=== PATIENT | female | born 1975 | race Caucasian/White ===

== ENCOUNTER → 2016-07-09 | Outpatient (CLI) | payer BC ==
[~2016-07-09] MED LIST: CITA40TA12 PO; DSY/150 PO; ESZO1TAB20 PO; HYDR-5688 PO; METF500T5 PO; NORE5TAB5 PO; RIZA10TA18 PO; SUMA50TA15 PO
== END | disposition home or self-care (01) ==
LOC: C.PAPS 16:33
PROVIDERS: ATTEND Obstetrics & Gynecology
DX: Z01.419 Encounter for gynecological examination (general) (routine) without abnormal findings (principal)

== ENCOUNTER → 2016-07-15 | Outpatient (CLI) | payer BC ==
[2016-07-15 11:41] LABS: BASO % 0.3 %; BASO ABS # 0.02 K/uL (0-0.2); COMPLETE YES; EOS % 1.6 %; HEMATOCRIT 43.1 % (37-47); IG% 0.3 %; LYMPH % 38.4 %; LYMPH ABS # 2.59 K/uL (1.2-3.4); MEAN CELL VOLUME 91.1 fL (80-100); MEAN CORPUSCULAR HEMOGLOBIN 31.3 pg (25-34); MEAN CORPUSCULAR HGB CONC 34.3 g/dl (32-36); MEAN PLATELET VOLUME 9.8 fL (7.4-10.4); MONO % 3.1 %; NEUT % 56.3 %; PLATELET COUNT 314 K/uL (130-400); RED BLOOD COUNT 4.73 M/uL (4.2-5.4); WHITE BLOOD COUNT 6.75 K/uL (4.8-10.8)
[2016-07-15 11:43] LABS: PREG INTERNAL NEGATIVE QC NEG CLEAR BACKGROUND; PREG INTERNAL POSITIVE QC POS CONTROL LINE
== END | disposition home or self-care (01) ==
LOC: C.LAB 09:53
PROVIDERS: ATTEND Obstetrics & Gynecology
DX: N92.0 Excessive and frequent menstruation with regular cycle (principal); Z30.2 Encounter for sterilization; Z01.812 Encounter for preprocedural laboratory examination

== ENCOUNTER → 2016-07-18 | Day surgery (SDC) | payer BC ==
[2016-07-01 11:17] VITALS: Ht 166.4 cm; Wt 82.3 kg
--- NOTE | 2016-07-09 11:33 | HISTORY & PHYSICAL EXAMINATION ---
DATE OF ADMISSION: 07/18/2016 CHIEF COMPLAINT: Heavy vaginal bleeding and clotting. HISTORY OF PRESENT ILLNESS: The patient is a 41-year-old 2, para 2. Her last delivery was a for placenta previa at which time she had an amniotic fluid embolus for which she had to be hospitalized and from which she made a full recovery. That occurred in 2012. She presently has several years of heavy vaginal bleeding and clotting. Her periods lasting 7-10 days with clotting, soaking over a pad an hour. She had a Mirena IUD; however, she is unable to retain the IUDs. The last IUD that was inserted fell out before she came back for her 6 week checkup and following this she had a complete CT scan of the abdomen and there was no IUD in the abdominal cavity. She is presently being scheduled for a D\T\C, hysteroscopy, endometrial ablation and bilateral tubal ligation. The ablation is due to her heavy bleeding and her inability to function several days each month due to the heavy bleeding and tubal is for control, for which she is at high risk for getting again secondary to amniotic fluid embolus. SOCIAL HISTORY: She is about a 2 cigarette a day smoker. No excessive alcohol intake. Works at home. PAST MEDICAL HISTORY: She has had a . Medical history: She survived an amniotic fluid embolus with her last in 2012. ALLERGIES: STATES SHE IS ALLERGIC TO PENICILLIN AND HYDROCODONE FROM WHICH SHE GETS A RASH. FAMILY HISTORY: Mom at age 56, oat cell carcinoma of the lung. She was a heavy smoker, starting at age 13. Father 74, has prostate cancer. She has 3 brothers and 3 sisters in good health. REVIEW OF SYSTEMS: She does have problems with anxiety and depression. MEDICATIONS: She is on medications Celexa 80 mg a day. She is also on metformin 1000 mg a day and she takes Ativan p.r.n. for anxiety and Ambien to sleep at night. PHYSICAL EXAMINATION: GENERAL: Well-developed, well-nourished 41-year-old white female, alert, oriented x3 and cooperative in no acute distress, appears stated age. EYES: Conjunctivae are pink, sclerae white, no evidence of jaundice. EARS: Had normal light reflex bilaterally. NECK: Supple. Trachea midline. Thyroid is not enlarged. CHEST: Clear to auscultation and percussion. HEART: Regular rhythm. S1, S2 were normal. ABDOMEN: Normal, there was a well-healed Pfannenstiel scar. PELVIC EXAMINATION: Revealed the normal appearing cervix. Uterus was normal size. There were no adnexal masses or abdominal pelvic tenderness. MUSCULOSKELETAL EXAMINATION: Revealed no calf tenderness. IMPRESSIONS OF THIS CASE: Hypermenorrhea, severe dysmenorrhea, history of amniotic fluid embolus, history of previous , desire for permanent sterilization. MTDD
[~2016-07-18] VITALS: Ht 166.4 cm; Wt 82.3 kg
[~2016-07-18] MED LIST changes: +ATROPINE SULFATE 0.1 MG/ML 5ML SYR IV PRN; +BUPIVACAINE/EPINEPHRINE 0.5% MPF 1:200,000 30 ML VIAL ONE; +DEXAMETHASONE SOD INJ 4 MG/ML VIAL ONE; +DiphenhydrAMINE HCL 50 MG/ML VIAL IV SCH; +DiphenhydrAMINE HCL 50 MG/ML VIAL ONE; +EpHEDrine SULFATE INJ 50 MG/ML AMP IV PRN; +FENTANYL CITRATE INJ 50 MCG/1 ML 2 ML VIAL ONE; +FLUMAZENIL 0.1 MG/1 ML 10 ML VIAL IV PRN; +HYDROmorphone HCL 2 MG TAB PO PRN; +HYDROmorphone INJ 1 MG/ML SYR ONE; +HYDROmorphone INJ 2 MG/ML SYR/VIAL IV PRN; +KETOROLAC TROMETHAMINE 30 MG/ML VIAL IV. PRN; +KETOROLAC TROMETHAMINE 30 MG/ML VIAL ONE; +LABETALOL HCL IV 5 MG/ML 20ML IV PRN; +LACTATED RINGER'S 1000ML 1,000 ML IV SCH; +LIDOCAINE HCL 2% 2 ML VIAL (20MG/ML) ONE; +MEPERIDINE HCL 25 MG/ML CARP IV PRN; +MEPERIDINE HCL 25 MG/ML CARP ONE; +MIDAZOLAM HCL 1 MG/ML 2ML VIAL ONE; +NALOXONE HCL 0.4 MG/1 ML VIAL/CARP IV PRN; +NURSING VERBAL MED ORDER ONE; +ONDANSETRON INJ 2 MG/ML 2 ML VIAL IV PRN; +ONDANSETRON INJ 2 MG/ML 2 ML VIAL ONE; +PHENYLEPHRINE 100MCG/ML 5ML SYR IV PRN; +PROPOFOL IV EMULSION 10 MG/ML 20 ML VIAL IV ONE; +ROCURONIUM BROMIDE 10 MG/ML 5 ML VIAL ONE; +SODIUM CHLORIDE 0.9% 1000ML 1,000 ML IV SCH; +SODIUM CHLORIDE 0.9% INJ 10 ML VIAL ONE
--- NOTE | 2016-07-18 11:43 | History & Physical Bridge Note ---
H&P Re-Evaluation Bridge Note: I have examined the patient, reviewed the History & Physical and in the interval since the performance of the History & Physical I have noted the following changes of clinical significance: No changes noted
--- NOTE | 2016-07-18 13:23 | [facility] Post Operative Brief Note ---
Immediate Operative Summary Operative Date Jul 18, 2016. Pre-Operative Diagnosis Heavy Vaginal Bleeding, Desire for Sterilization Post-Operative Diagnosis same Procedure(s) Performed Laparoscopic Tubal Sterilization, Dilatation And Curettage, Hysteroscopy With Attempted Novasure Ablation Surgeon Dr. Mitchell Gonsales Oven Worker Surgeon(s) 0 Estimated Blood Loss 20cc Findings uterus sounded to 8 cm failed nova sure ablation unable to open the device in uterine cavity endometriosis Specimens A. Endometrial Curettings Complication(s) None Disposition Recovery Room / PACU
--- NOTE | 2016-07-18 13:27 | Discharge Instructions-SurgCtr ---
Discharge Instructions Visit Reason for Visit: Heavy Vaginal Bleeding, Desire For Sterilization Discharge Discharge Diagnosis / Problem: heavy bleeding desire for permanent sterilization Discharge Goals Goal(s): Improve function Medications Stopped Medications Name(s): Metformin, last dose 07/15/16 Restart Stopped Medication(s): resume 07/19/16 Activity Recommendations Activity Limitations: as noted below ACTIVITY RECOMMENDATIONS: * Gradual return to full activity over next 2-3 weeks. * No heavy lifting over next 2-3 weeks. * Nothing in the vagina (no intercourse, tampons, or douching) for 2 weeks * You may walk up and down steps as necessary. * You may drive a car in 2 weeks. * Hot shower or tub bath daily. SPECIAL CARE INSTRUCTIONS: * Check temperature twice daily for one week. Report any elevation over 100.4 degrees Fahrenheit (38.0 degrees Celsius). * Call your doctor if bleeding becomes heavier than the heaviest part of your period - saturating a sanitary pad within an hour. * If you develop a red, hard, warm swollen lump on your incision or if you develop any separation of or drainage from your incision, notify your doctor. Anesthesia . Post Anesthesia Instructions: If you have had General Anesthesia or IV Sedation: * Do not drive today. * Resume driving when surgeon permits. * Do not make important decisions or sign legal documents today. * Call surgeon for: 1. Temperature elevations greater than 101 degrees F. 2. Uncontrollable pain. 3. Excessive bleeding. 4. Persistent nausea and vomiting. 5. Medication intolerance (nausea, vomiting or rash). * For nausea and vomiting use only clear liquids such as: tea, soda, bouillon until nausea subsides, then gradually increase diet as tolerated. * If you have any concerns or questions, call your surgeon's office. If physician is unavailable and it is an emergency, call 911 or go to the nearest emergency room. . Diet Recommendations Home Diet: resume previous diet Procedures Procedures Performed: Laparoscopic Tubal Sterilization, Dilatation And Curettage, Hysteroscopy With Attempted Novasure Ablation Pending Studies Studies pending at discharge: no Medical Emergencies . Who to Call and When: Medical Emergencies: If at any time you feel your situation is an emergency, please call 911 immediately. . Non-Emergent Contact Non-Emergency issues call your: Aircraft Rigging And Controls Mechanic Call Non-Emergent contact if: temperature is above 100.5 . . "Provider Documentation" section prepared by Jericho Gonsales.
[2016-07-18] MEDS: FENTANYL CITRATE INJ 50 MCG/1 ML 2 ML VIAL IV PRN ×2 (14:17→14:25)
--- NOTE | 2016-07-18 15:06 | OPERATIVE REPORT ---
DATE OF OPERATION: 07/18/2016 PROCEDURES: Laparoscopic tubal ligation, D\T\C, hysteroscopy and a failed endometrial ablation. PREOPERATIVE DIAGNOSES: Heavy vaginal bleeding, failed Mirena intrauterine device, desire for permanent sterilization. POSTOPERATIVE DIAGNOSES: Abnormal uterine cavity, unable to adequately open up the NovaSure device in order for it to turn on, minimal amount of endometriosis, normal tubes and ovaries. SURGEON: Dr. Gonsales. ESTIMATED BLOOD LOSS: 20 mL. ANESTHESIA: General. OPERATIVE FINDINGS AND PROCEDURE: The patient was brought to the OR table, correctly identified by armband and conversation. General anesthesia was administered. Perineum, vagina and lower abdomen were painted with Betadine paint, draped in the usual sterile fashion. Catheter was used to empty the bladder. Careful pelvic exam under anesthesia revealed a normal size anteverted uterus. There were no adnexal masses appreciated. Weighted speculum was placed in the posterior vagina. Anterior lip of the cervix grasped with single-tooth tenaculum. Uterus sounded to 8 cm. Cervix was dilated with graduated dilators. A hysteroscope with normal saline distention medium was inserted in the uterine cavity. The cavity appeared to be somewhat irregular and small. I was able to identify the right tubal ostia opening and the left tubal ostial opening. I then proceeded to curette the entire endometrial cavity out with a small sharp serrated curette. All the tissues were submitted for pathological evaluation. Following this, I inserted a NovaSure device with the cervical length estimated at 4.5 cm. I attempted 3 times to open the device up, but I could not get it wide enough for the device to be able to be activated. I replaced it 3 individual times and each time I moved it around right and left and rotated it several times to try to get it to open but could not get it to open wide enough for the needle to go out of the red area. We then abandoned the endometrial ablation procedure, took the NovaSure device out, placed an acorn cannula into the cervix and attached it to the tenaculum. Attention was turned to the lower abdomen. Subumbilical area was infiltrated with local with epinephrine. Stab wound was placed and a Veress needle was inserted into the abdominal cavity. Three liters of carbon dioxide gas was passed under low pressure. Incision was then widened laterally, then a large cannula and trocar was inserted. Trocar was removed. Laparoscope was inserted. Good visualization of pelvic structures was obtained at this time. Bladder flap was visualized, cul-de-sac was visualized. Both tubes and ovaries were freely mobile. Some small endometriosis on the uterosacral ligaments. I then placed a second puncture site through the scar, infiltrated with local, then placed a stab wound and a 5 mm trocar and sleeve. Trocar was removed and a blunt probe was used to manipulate the bowels out of the cavity, I was able take a picture of the appendix. I then put a bipolar cauterization forceps and cauterized the mid portion of each fallopian tube in 2 consecutive and adjacent areas, also followed the tube out to the fimbria to ensure identification, then I placed a laparoscopic scissors in the abdominal cavity and I divided the blanched area of both tubes. Photographs were taken after the tubes had been cauterized and cut. Following this, gas was expressed manually. Instruments were removed. Ports were cleansed with Betadine and sutured with interrupted Vicryl. I attest to the content of the Intraoperative Record and any orders documented therein. Any exceptio ns are noted below.
[2016-07-18 15:40] VITALS: BP 115/74; PULSE 91; TEMP 36.7; O2SAT 94
--- NOTE | 2016-07-18 16:04 | Anesthesia Progress Nt - [facility] ---
Anesthesia Post Op Note Date & Time Jul 18, 2016 at 16:00 Vital Signs Pain Intensity: 4 Vital Signs Past 12 Hours Date Time Temp Pulse Resp B/P Pulse Ox O2 Delivery O2 Flow Rate FiO2 07/18/16 15:40 36.7 91 16 115/74 94 Room Air 07/18/16 15:04 36.6 72 14 07/18/16 15:04 75 14 93 07/18/16 15:03 109/74 07/18/16 14:59 78 23 94 07/18/16 14:59 77 23 07/18/16 14:58 116/73 07/18/16 14:54 78 18 93 07/18/16 14:54 81 18 07/18/16 14:53 121/71 07/18/16 14:49 78 15 95 07/18/16 14:49 75 15 07/18/16 14:48 115/75 07/18/16 14:44 79 15 93 07/18/16 14:44 79 15 07/18/16 14:43 114/76 07/18/16 14:39 86 9 07/18/16 14:39 88 9 97 07/18/16 14:38 120/80 07/18/16 14:34 85 17 07/18/16 14:34 83 17 97 07/18/16 14:33 117/80 07/18/16 14:29 69 15 96 07/18/16 14:29 69 15 07/18/16 14:29 69 15 07/18/16 14:29 69 15 96 07/18/16 14:28 118/81 07/18/16 14:28 118/81 07/18/16 14:24 74 24 99 1617 14:24 74 24 1617 14:24 74 24 07/18/16 14:24 74 24 99 16/17 14:23 125/83 16 14:23 125/83 16 14:19 74 24 1617 14:19 74 24 117/82 99 16/17 14:19 74 24 117/82 99 16/ 14:19 74 24 16 14:14 74 21 16 14:14 73 21 96 16 14:14 73 21 96 2/16/17 14:14 74 21 2/16/17 14:13 135/89 2/16/17 14:13 135/89 2/16/17 14:09 78 14 118/75 100 2/16/17 14:09 77 14 2/16/17 14:09 77 14 2/16/17 14:09 78 14 118/75 100 2/16/17 14:04 91 18 137/97 100 2/16/17 14:04 88 18 2/16/17 14:04 91 18 137/97 100 2/16/17 14:04 88 18 2/16/17 13:59 75 25 100 2/16/17 13:59 74 25 2/16/17 13:59 74 25 2/16/17 13:59 75 25 100 2/16/17 13:58 118/76 2/16/17 13:58 118/76 2/16/17 13:54 77 21 2/16/17 13:54 77 21 2/16/17 13:54 76 21 119/82 94 2/16/17 13:54 76 21 119/82 94 2/16/17 13:49 88 34 122/43 100 2/16/17 13:49 87 34 2/16/17 13:49 87 34 2/16/17 13:49 88 34 122/43 100 2/16/17 13:44 94 21 98 2/16/17 13:44 96 21 2/16/17 13:44 94 21 98 2/16/17 13:44 96 21 2/16/17 13:39 84 28 2/16/17 13:39 85 28 97 2/16/17 13:39 84 28 2/16/17 13:39 85 28 97 2/16/17 13:38 157/129 2/16/17 13:38 157/129 2/16/17 13:34 81 19 94 2/16/17 13:34 81 19 94 2/16/17 13:34 84 19 2/16/17 13:34 84 19 2/16/17 13:29 85 24 99 2/16/17 13:29 85 24 99 2/16/17 13:29 85 24 2/16/17 13:29 85 24 2/16/17 13:28 124/80 2/16/17 13:28 124/80 2/16/17 13:24 93 15 2/16/17 13:24 93 15 07/18/16 13:24 93 15 100 07/18/16 13:24 93 15 100 07/18/16 13:23 135/84 07/18/16 13:23 135/84 07/18/16 13:19 80 23 100 07/18/16 13:19 80 23 07/18/16 13:19 80 23 100 07/18/16 13:19 80 23 07/18/16 13:19 36.3 82 20 129/87 100 Diffusion Mask 6 07/18/16 11:14 36.4 84 20 126/84 97 Room Air Notes Mental Status: alert / awake / arousable, participated in evaluation Pt Amnestic to Procedure: Yes Nausea / Vomiting: adequately controlled Pain: adequately controlled Airway Patency, RR, SpO2: stable & adequate BP & HR: stable & adequate Hydration State: stable & adequate Anesthetic Complications: no major complications apparent The patient was extremely anxious preoperatively due to her PTSD and anxiety from her previous C section. She was given midazolam preoperatively. She tolerated the surgery well and was extubated without incident. She was brought to the PACU with oxygen by FM and all of her vitals were stable. She appeared to have a panic attack upon waking which included hyperventilating and asking if she was in [facility]. She was given Demerol for pain and shivering. Then she was given Benadryl for itching and midazolam for anxiety. The patient was further given fentanyl and Dilaudid for pain. She appeared comfortable and stable upon discharge.
== END | disposition home or self-care (01) ==
LOC: X.SURG 10:56
PROVIDERS: ATTEND Obstetrics & Gynecology
DX: N92.4 Excessive bleeding in the premenopausal period (principal); Z53.09 Procedure and treatment not carried out because of other contraindication; Z30.2 Encounter for sterilization; Z87.891 Personal history of nicotine dependence; Z88.0 Allergy status to penicillin; Z88.8 Allergy status to other drugs, medicaments and biological substances

== ENCOUNTER 2023-06-15 14:41 | Observation (INO) ==
--- OUTSIDE RECORDS SUMMARY | 2023-06-15 14:50 | External Medical Summary | Summary of Care ---
Author Name Unknown Organization [facility] Address [address] [place] [address] Phone [phone] Care Team Providers Care Delicate Fabrics Presser Name Role Phone Gilson Bermudez DO Primary Care Provider [phone] Reason for Visit * Reason Comments eRx-Medication Refill Encounter Details Date Type Department Care Team (Late st Contact Info) Description 06/03/2023 Refill Family Practice [facility] [address] [facility] [place] [address] Gilson Bermudez DO [address] [place] [address] Migraine with aura and without status migrainosus, not intractable; Pelvic pain in female Allergies Active Allergy Reactions Criticality Noted Date Comments Latex Low 12/04/2001 Other reaction(s): RASH Oxycodone High 08/09/2022 Other reaction(s): itchy, "Makes me a bitch" Penicillins Itching,Rash High 07/22/2011 Other reaction(s): ITCHY RASH PER [facility]- "MOTHER WAS HIGHLY ALLERGIC" Oxycodone-Acetaminophen Low 12/12/2015 Angry Topiramate Seizure High 09/23/2015 Other reaction(s): CAUSED A SEIZURE PER [facility]. "freak out" "get numb" Varenicline High 10/12/2019 Suicidal thoughts Other reaction(s): SUICIDAL THOUGHTS documented as of this encounter (statuses as of 06/09/2023) Medications Medication Sig Dispensed Refills Start Date End Date Status zolpidem (AMBIEN) 10 MG Tablet Take 1 Tablet by mouth at bedtime as needed. 0 Active ALPRAZolam 1 MG Oral Tablet (xaNAX) Take 1 Tablet by mouth 3 times a day as needed. 0 3 Active Prazosin HCl 2 MG Oral Capsule (Minipress) Take 1 Capsule by mouth at bedtime. 0 3 Active traZODone HCl 300 MG Oral Tablet (Desyrel) Take 1 Tablet by mouth at bedtime. 0 Active Ondansetron HCl 4 MG Oral Tablet (Zofran) Take 1 Tablet by mouth every 6 hours as needed for Nausea. 30 Tablet 3 3 Active Additional Information Patient not taking.Reported on 03/04/2023 Propranolol HCl ER 60 MG Oral Capsule Extended Release 24 Hour (Inderal LA)Indications:Intr actable migraine with aura with status migrainosus Take 1 Capsule by mouth in the morning. 30 Capsule 5 3 Active Additional Information Patient not taking.Reported on 03/04/2023 Codeine Sulfate 30 MG Oral TabletIndications:M igraine with aura and without status migrainosus, not intractable,Pelvic pain in female Take 1 Tablet by mouth every 8 hours as needed for Pain, Severe. 40 Tablet 0 3 Active Ibuprofen 200 MG Oral Capsule Take 1 Capsule by mouth every 4 hours as needed. Take 2 tabs, as needed for migraine 0 Active Ketorolac Tromethamine 10 MG Oral Tablet (Toradol) TAKE 1 TABLET BY MOUTH 4 TIMES A DAY NEEDED FOR PAIN, SEVERE. DO NOT TAKE FOR LONGER THAN 5 DAYS 20 Tablet 0 3 Active Baclofen 10 MG Oral Tablet (Lioresal) TAKE 1 TABLET BY MOUTH IN THE MORNING AND BEFORE BEDTIME 45 Tablet 3 3 Active Nurtec 75 MG Oral Tablet Disintegrating (Rimegepant Sulfate) DISSOLVE 1 TABLET ON TONGUE ONCE DAILY NEEDED FOR MIGRAINE 8 Tablet 5 3 Active Acetaminophen-Codei ne 300-30 MG Oral TabletIndications:M igraine with aura and without status migrainosus, not intractable,Pelvic pain in female Take 1 Tablet by mouth every 8 hours as needed for Pain, Moderate. 40 Tablet 0 4 Active Acetaminophen-Codei ne 300-30 MG Oral TabletIndications:M igraine with aura and without status migrainosus, not intractable,Pelvic pain in female Take 1 Tablet by mouth every 8 hours as needed for Pain, Moderate. 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 Humphrey. Bacterial pneumonia 08/07/2012 11/11/19 15 Acute bronchitis, complicated 08/06/2012 11/10/2014 Lower urinary tract infectious disease 08/04/2012 11/10/2014 Overview: ICD-10 update of inactive term Cardiac arrest after obstetr ic surgery or oth proc including delivery 07/31/2012 08/07/2012 DIC (disseminated intravascular coagulation) 3 08/07/2012 Postoperative respiratory failure 07/31/2012 08/07/2012 Placenta previa without hemorrhage 03/19/2012 08/07/2012 Overview: Dx at 18 wks in ER when presented with diarrhea. Elderly multigravida 01/06/2012 017 Overview: Declines MFM consult for AMA Declines FTS Pt received flu vaccine at walk in clinic. 02/20/2012 Nayeli Rodriguez, RN Tobacco use in 01/06/201204/2015 Overview: Smoking 1-5cig/day at NOB visit Female infertility 11/21/2011 7 Overview: HSG bilat spill Endo bx - secretory Endo labs wnl SA 40 mil documented as of this encounter (statuses as of 06/09/2023) Immunizations Name Administration Dates Next Due COVID-19 mRNA, LNP-s, No Pre serve, 2-Dose Series (Zindigo) 06/04/2021 Covid-19 Ad26, Single Dose (Neurescue/J&J) 08/10/2020 Hepatitis B, 20+ yrs 02/18/2023 Pneumococcal Conjugate Vacci ne, 20-valent ([id number]) 12/11/2022 Pneumococcal Polysaccharide PPV23 (Pneumovax) 03/31/2019 Seasonal Influenza Virus Vac cine, Unspecified Formulation 02/25/2022,04/13/2018,02/17/2018,03/12,02/12/2016,03/04/2014,03/12/2013 ,02/18/2012,02/14/2011 Seasonal Influenza, PF, 6 M & above, IM , (FluLaval or Fluzone) 02/18/2023,02/25/2022,03/12/2017 Seasonal Influenza, QUAD, wi th Preserv, 6 mons & Above, 0.5 mL, IM 04/13/2018 Seasonal Influenza, Quadriva lent, No Preserve, IM 02/09/2020,02/17/2018,02/12/2016 Seasonal Influenza, Quadriva lent, No Preserve, Mdck 02/16/2019 Seasonal Influenza, Split, I IV3, With Preserve, Inj 02/20/2015,03/04/2014,03/12/2013,02/17,02/14/2011 TDAP (age 10 and older)(Boostrix) 12/11/2022, documented as of this encounter Social History Tobacco Use Types Packs/Day Years Used Date Smoking Tobacco: Every Day Cigarettes 0.3 20 Last attempted to quit: 05/15/2020 Smokeless Tobacco: Never Comments:5 cig a day at most Alcohol Use Standard Drinks/Week Comments No 0 (1 standard drink = 0.6 oz pur e alcohol) PHQ-2 Answer Date Recorded PHQ-2 Score -1 04/05/2018 Sex and Gender Information Value Date Recorded Sex Assigned at Female 09/28/2018 7:59 AM EDT Gender Identity Female 09/28/2018 7:59 AM EDT Sexual Orientation Straight 09/28/2018 7: 59 AM EDT Job Start Date Occupation Industry Not on file Not on file Not on file documented as of this encounter Miscellaneous Notes * Telephone Encounter - Nata Joy OSA - 06/09/2023 6:58 AM EST My g 06/09 * Telephone Encounter - Gagan Pettit III, MD - 06/05/2023 12:58 PM ESTSigned Prescriptions: Disp Refills Acetaminophen-Codeine 300-30 MG Oral [id number] Tab*0 Sig: Take 1 Tablet by mouth every 8 hours as needed for Pain, Moderate. Authorizing Provider: GAGAN PETTIT III * Telephone Encounter - Gagan Pettit III, MD - 06/05/2023 12:57 PM EST appt * Telephone Encounter - Justen [facility] - 06/05/2023 11:37 AM EST Pending Prescriptions: Disp Refills Acetaminophen-Codeine 300-30 MG Oral [id number] Tab*0 Sig: Take 1 Tablet by mouth every 8 hours as needed for Pain, Moderate. * Telephone Encounter - Chikis Marquez [facility] - 06/04/2023 9:49 AM ESTPending Prescriptions: Disp Refills Acetaminophen-Codeine 300-30 MG Oral Yuylhi34 Tab*0 Sig: Take 1 Tablet by mouth every 8 hours as needed for Pain, Moderate. * Telephone Encounter - Chikis Marquez [facility] - 06/04/2023 9:48 AM EST I have reviewed the patients controlled substance dispensing history in the Prescription Drug Monitoring Program in compliance with the [facility] regulations before prescribing a controlled substance. PDMP checked on 06/04/2023. Pending Prescriptions: Disp Refills Acetaminophen-Codeine 300-30 MG Oral Tabl*40 Tab*0 Sig: Take 1 Tablet by mouth every 8 hours as needed for Pain, Moderate. Last Visit: 02/11/2023 (in office), 12/14/2019 (telemedicine) Next Visit: Visit date not found Date medication was last filled: 05/16/23 Date medication is due for refill: 05/28/23 Pharmacy: [id number] Is this request for a controlled substance? Yes and Urine Drug Screen Not completed Toxicology results: No results found. However, due to the size of the patient record, not all encounters were searched.Please check Results Review for a complete set of results. Please approve if appropriate. Thanks, Chikis Marquez, PharmD Clinical Pharmacist [facility] ([facility]) [phone] 06/04/2023, 9:49 AM documented in this encounter Plan of Treatment Scheduled Procedures Name Priority Associated Diagnoses Date/Ti me COLONOSCOPY FLEXIBLE PROXIMA L DIAGNOSTIC Recall History of colonic polyps Health Maintenance Due Date Last Done Comments Depression Screening 05/05/2018 05/05/2017 Mammogram 03/06/2021 03/06/2020, 2017 COVID-19 Vaccine (24 season) 2023 06/04/2021, 08/10/2020 Hepatitis B (2 of 3 - 19+ 3-dose series) 03/18/2023 02/18/2023 Diabetes Screening 08/06/2025 08/06/2022, 0 01/21/2022, 10/10/2020, Additional history exists Pap Smear 12/11/2025 12/11/2022, 02/01, 11/11/2013, Additional history exists Lipid Panel 01/21/2027 01/21/2022, 08/0 07/2016, 06/13/2015, Additional history exists Cervical Cancer Screening 12/12/2027 HPV/Co-Test 12/12/2027 12/11/2022 COLONOSCOPY-EVERY 5 YRS AGES 18-100 03/11/2028 03/11/2023, 03/11/2023 DTaP,Tdap,and Td Vaccines (3 - Td or Tdap) 12/11/2032 12/11/2022, 11/15/2011 Pneumococcal Vaccine: Pediatrics (0 to 5 Years) and At-Risk Patients (6 to 64 Years) Completed 12/11/2022, 03/31/2019 Influenza Vaccine (FLU shot) Completed 02/18/2023, 02/25/2022, 02/25/2022, Additional history exists Colonoscopy Discontinued 03/11/2023, 03/11/2023 Colorectal Cancer Screening Discontinued Cologuard Discontinued Fecal Occult Blood Test Discontinued GARDASIL-HPV IMMUNIZATION SERIES Aged Out No longer eligible based on patient's age to complete this topic MENINGOCOCCAL (MENACTRA/MENVEO) Aged Out No longer eligible based on patient's age to complete this topic Sigmoidoscopy Discontinued documented as of this encounter Medical Devices Not on filedocumented as of this encounter Visit Diagnoses Diagnosis Migraine with aura and without status migrainosus, not intractable Migraine with aura, without mention of intractable migraine without mention of status migrainosus Pelvic pain in female Unspecified symptom associated with female genital organs documented in this encounter Advance Directives Latest Code Status on File Code Status Date Activated Date Inactivated Comments Full Code 08/26/2017 12:28 PM 08/27/2017 3:39 PM This order reflects the patients wishes and were consensually agreed upon. Code Status History Code Status Date Activated Date Inactivated Comments Full Code 07/31/2012 1:32 PM 08/07/2012 9:19 PM This or chapis reflects the patients wishes and were consensually agreed upon. Question Answer Comments Discussion of Advance Directives occurred with: Not Discussed Does the patient have a Living Will? No Does the patient have Health Care Power of Drum Straightener? No Care Teams Delicate Fabrics Presser Relationship Specialty Start Date End Date Gilson Bermudez DO [address] [place] [address] PCP - General Family Medicine 12/18/16 documented as of this encounter
--- OUTSIDE RECORDS SUMMARY | 2023-06-15 14:50 | External Medical Summary | Summary of Care ---
Author Name Unknown Organization [facility] Address [address] [place] [address] Phone [phone] Care Team Providers Care Manager Heavy Duty Name Role Phone Tori Trujillo DO Primary Care Provider [phone] Reason for Visit * Reason Comments eRx-Medication Refill Encounter Details Date Type Department Care Team (Late st Contact Info) Description 05/15/2023 Refill Family Practice [facility] [address] [place] [address] Tori Trujillo DO [address] [place] [address] Migraine with aura and without status migrainosus, [...] as of this encounter (statuses as of 05/16/2023) Medications Medication Sig Dispensed Refills Start Date [...] for Pain, Moderate. 40 Tablet 0 3 Active Acetaminophen-Codei ne 300-30 MG Oral TabletIndications:M igraine with aura and without status migrainosus, not intractable,Pelvic pain in female Take 1 Tablet by mouth every 8 hours as needed for Pain, Moderate. 40 Tablet 0 3 05/16/20 23 Discontinued documented as of this encounter (statuses as of 05/16/2023) Active Problems Problem Noted Date Diagnosed Date [...] as of this encounter (statuses as of 05/16/2023) Resolved Problems Problem Noted Date Diagnosed Date [...] as of this encounter (statuses as of 05/16/2023) Immunizations Name Administration Dates Next Due COVID-19 mRNA, LNP-s, No Pre serve, 2-Dose Series (Cloudacc) 06/04/2021 Covid-19 Ad26, Single Dose ([employer]/J&J) 08/10/2020 Hepatitis B, 20+ yrs 02/18/2023 Pneumococcal Conjugate Vacci ne, 20-valent ([id number]) 12/11/2022 Pneumococcal Polysaccharide PPV23 (Pneumovax) 03/31/2019 Seasonal [...] encounter Miscellaneous Notes * Telephone Encounter - Tori Trujillo DO - 05/16/2023 10:02 AM ESTSigned Prescriptions: Disp Refills Acetaminophen-Codeine 300-30 MG Oral [id number] Tab*0 Sig: Take 1 Tablet by mouth every 8 hours as needed for Pain, Moderate. Authorizing Provider: TORI TRUJILLO * Telephone Encounter - Kassandra Delarosa [facility] - 05/16/2023 5:03 AM ESTPending Prescriptions: Disp Refills Acetaminophen-Codeine 300-30 MG Oral Glzshn62 Tab*0 Sig: Take 1 Tablet by mouth every 8 hours as needed for Pain, Moderate. * Telephone Encounter - Kassandra Delarosa [facility] - 05/16/2023 5:02 AM EST I have reviewed the patients controlled substance dispensing history in the Prescription Drug Monitoring Program in compliance with the [facility] regulations before prescribing a controlled substance. PDMP checked on 05/16/2023. Pending Prescriptions: Disp Refills Acetaminophen-Codeine 300-30 MG Oral Tabl*40 Tab*0 Sig: TAKE 1 TABLET BY MOUTH EVERY 8 HOURS NEEDED FOR MODERATE PAIN Last Visit: 02/11/2023 (in office), 12/14/2019 (telemedicine) Next Visit: Visit date not found Date medication was last filled: 05/02/23 Date medication is due for refill: 05/15/23 Pharmacy: [id number] [facility] Is this request for a controlled substance? Yes and Urine Drug Screen Not completed Toxicology results: No results found. However, due to the size of the patient record, not all encounters were searched.Please check Results Review for a complete set of results. Please approve if appropriate. Thank You, Kassandra Delarosa [facility] Clinical Pharmacist Centralized Clinical Pharmacy Services ([facility]) (formerly Telepharmacy) [phone] 05/16/2023, 5:02 AM documented in this encounter Plan of Treatment Scheduled Procedures Name Priority Associated Diagnoses Date/Ti me COLONOSCOPY FLEXIBLE PROXIMA L DIAGNOSTIC Recall History of colonic polyps Health Maintenance Due Date Last Done Comments Depression Screening 05/05/2018 05/05/2017 Mammogram 03/06/2021 03/06/2020, 2017 COVID-19 Vaccine ( season) 2023 06/04/2021, 08/10/2020 Hepatitis B (2 [...] the patient have Health Care Power of Claims Manager? No Care Teams Manager Heavy Duty Relationship Specialty Start Date End Date Tori Trujillo DO [address] [place] [address] PCP - General Family Medicine 12/18/16 documented as of this encounter
--- OUTSIDE RECORDS SUMMARY | 2023-06-15 14:50 | External Medical Summary | Summary of Care ---
Author Name Unknown Organization [facility] Address [address] [place] [address] Phone [phone] Care Team Providers Care Tear Down Worker Name Role Phone Gilson Bermudez DO Primary Care Provider [phone] Reason for Visit * Reason Comments eRx-Medication Refill Encounter Details Date Type Department Care Team (Late st Contact Info) Description 06/03/2023 Refill Family Practice [facility] [address] [facility] [place] [address] Gilson Bermudez DO [address] [facility] [place] [address] Migraine with aura and without status migrainosus, [...] mRNA, LNP-s, No Pre serve, 2-Dose Series ([employer]) 06/04/2021 Covid-19 Ad26, Single Dose ([employer]/J&J) 08/10/2020 Hepatitis B, 20+ yrs 02/18/2023 Pneumococcal Conjugate Vacci ne, 20-valent ([id number]) 12/11/2022 Pneumococcal Polysaccharide PPV23 (Pneumovax) 03/31/2019 Seasonal [...] encounter Miscellaneous Notes * Telephone Encounter - Isidoro Rios OSA - 06/09/2023 12:03 PM EST Patient is scheduled 06/16/23. * Telephone Encounter - Nata Joy OSA - 06/09/2023 6:58 AM EST My g 06/09 * Telephone Encounter - Gagan Pettit III, MD - 06/05/2023 12:58 PM ESTSigned Prescriptions: Disp Refills Acetaminophen-Codeine 300-30 MG Oral Crszyn05 Tab*0 Sig: Take 1 Tablet by mouth every 8 hours as needed for Pain, Moderate. Authorizing Provider: GAGAN PETTIT III * Telephone Encounter - Gagan Pettit III, MD - 06/05/2023 12:57 PM EST appt * Telephone Encounter - Interface, [facility] S[facility] Inbound - 06/05/2023 11:37 AM EST Pending Prescriptions: Disp Refills Acetaminophen-Codeine 300-30 MG Oral [id number] Tab*0 Sig: Take 1 Tablet by mouth every 8 hours as needed for Pain, Moderate. * Telephone Encounter - Chikis Marquez [facility] - 06/04/2023 9:49 AM ESTPending Prescriptions: Disp Refills Acetaminophen-Codeine 300-30 MG Oral Jujbmc91 Tab*0 Sig: Take 1 Tablet by mouth every 8 hours as needed for Pain, Moderate. * Telephone Encounter - Chikis Marquez [facility] - 06/04/2023 9:48 AM EST I have reviewed the patients controlled substance dispensing history in the Prescription Drug Monitoring Program in compliance with the [facility] regulations before prescribing a controlled substance. PDMP checked on 06/04/2023. Pending Prescriptions: Disp Refills Acetaminophen-Codeine 300-30 MG Oral Tabl*40 Tab*0 Sig: Take 1 Tablet by mouth every 8 hours as needed for Pain, Moderate. Last Visit: 02/11/2023 (in office), 12/14/2019 (telemedicine) Next Visit: Visit date not found Date medication was last filled: 05/16/23 Date medication is due for refill: 05/28/23 Pharmacy: [id number] Is this request for a controlled substance? Yes and Urine Drug Screen Not completed Toxicology results: No results found. However, due to the size of the patient record, not all encounters were searched.Please check Results Review for a complete set of results. Please approve if appropriate. Thanks, Chikis Marquez, PharmD Clinical Pharmacist [facility] ([facility]) [phone] 06/04/2023, 9:49 AM documented in this encounter Plan of Treatment Upcoming Encounters Date Type Department Care Team (Late st Contact Info) Description 06/16/2023 3:00 PM EST Office Visit Family Practice [facility] [place] [address] [facility] [place] [address] Gilson Bermudez DO [address] [facility] [place] [address] Scheduled Procedures Name Priority Associated Diagnoses Date/Ti me COLONOSCOPY FLEXIBLE PROXIMA L DIAGNOSTIC Recall History of colonic polyps Health Maintenance Due Date Last Done Comments Depression Screening 05/05/2018 05/05/2017 Mammogram 03/06/2021 03/06/2020, 2017 COVID-19 Vaccine (2022-24 season) 2023 06/04/2021, 08/10/2020 Hepatitis B (2 [...] the patient have Health Care Power of Gunner Mate? No Care Teams Tear Down Worker Relationship Specialty Start Date End Date Gilson Bermudez DO [address] [place] [address] PCP - General Family Medicine 12/18/16 documented as of this encounter
--- OUTSIDE RECORDS SUMMARY | 2023-06-15 14:50 | External Medical Summary | Summary of Care ---
Author Name Unknown Organization [facility] Address [address] [place] [address] Phone [phone] Care Team Providers Care Industrial Chemicals Supervisor Name Role Phone Gilson Bermudez DO Primary Care Provider [phone] Reason for Visit * Reason Comments eRx-Medication Refill Encounter Details Date Type Department Care Team (Late st Contact Info) Description 05/16/2023 Refill Family Practice [facility] [address] [place] [place] [address] Gilson Bermudez DO [address] [place] [address] Anxiety Allergies Active Allergy Reactions Criticality Noted Date [...] as of this encounter (statuses as of 05/17/2023) Medications Medication Sig Dispensed Refills Start Date End Date Status zolpidem (AMBIEN) 10 MG Tablet Take 1 Tablet by mouth at bedtime as needed. 0 Active ALPRAZolam 1 MG Oral Tablet (xaNAX) Take 1 Tablet by mouth 3 times a day as needed. 0 07/17/2022 Active Prazosin HCl 2 MG Oral Capsule (Minipress) Take 1 Capsule by mouth at bedtime. 0 12/06/2022 Active traZODone HCl 300 MG Oral Tablet (Desyrel) Take 1 Tablet by mouth at bedtime. 0 Active Ondansetron HCl 4 MG Oral Tablet (Zofran) Take 1 Tablet by mouth every 6 hours as needed for Nausea. 30 Tablet 3 02/04/2023 Active Additional Information Patient not taking.Reported on 03/04/2023 Propranolol HCl ER 60 MG Oral Capsule Extended Release 24 Hour (Inderal LA)Indications:Intra ctable migraine with aura with status migrainosus Take 1 Capsule by mouth in the morning. 30 Capsule 5 02/11/2023 Active Additional Information Patient not taking.Reported on 03/04/2023 Codeine Sulfate 30 MG Oral TabletIndications:Marie loving with aura and without status migrainosus, not intractable,Pelvic pain in female Take 1 Tablet by mouth every 8 hours as needed for Pain, Severe. 40 Tablet 0 02/14/2023 Active Ibuprofen 200 MG Oral Capsule Take 1 Capsule by mouth every 4 hours as needed. Take 2 tabs, as needed for migraine 0 Active Ketorolac Tromethamine 10 MG Oral Tablet (Toradol) TAKE 1 TABLET BY MOUTH 4 TIMES A DAY NEEDED FOR PAIN, SEVERE. DO NOT TAKE FOR LONGER THAN 5 DAYS 20 Tablet 0 03/06/2023 Active Baclofen 10 MG Oral Tablet (Lioresal) TAKE 1 TABLET BY MOUTH IN THE MORNING AND BEFORE BEDTIME 45 Tablet 3 03/31/2023 Active Nurtec 75 MG Oral Tablet Disintegrating (Rimegepant Sulfate) DISSOLVE 1 TABLET ON TONGUE ONCE DAILY NEEDED FOR MIGRAINE 8 Tablet 5 05/12/2023 Active Acetaminophen-Codein e 300-30 MG Oral TabletIndications:Marie loving with aura and without status migrainosus, not intractable,Pelvic pain in female Take 1 Tablet by mouth every 8 hours as needed for Pain, Moderate. 40 Tablet 0 05/16/2023 Active documented as of this encounter (statuses as of 05/17/2023) Active Problems Problem Noted Date Diagnosed Date [...] as of this encounter (statuses as of 05/17/2023) Resolved Problems Problem Noted Date Diagnosed Date [...] as of this encounter (statuses as of 05/17/2023) Immunizations Name Administration Dates Next Due COVID-19 mRNA, LNP-s, No Pre serve, 2-Dose Series (Pfizer) 06/04/2021 Covid-19 Ad26, Single Dose (Gaudencio/J&J) 08/10/2020 Hepatitis B, 20+ yrs 02/18/2023 Pneumococcal Conjugate Vacci ne, 20-valent ([id number]) 12/11/2022 Pneumococcal Polysaccharide PPV23 (Pneumovax) 03/31/2019 Seasonal [...] encounter Miscellaneous Notes * Telephone Encounter - Chikis Larsen RPh - 05/17/2023 11:46 AM ESTRefused Prescriptions: Disp Refills traZODone HCl 150 MG Oral Tablet (Desyrel) 90 Tab*2 Sig: TAKE 1TABLET BY MOUTH EVERYDAY AT BEDTIMERefused By: RADHA LARSENeason for Refusal: Course of treatment c omplete documented in this encounter Plan of Treatment Scheduled Procedures Name Priority Associated Diagnoses Date/Ti me COLONOSCOPY FLEXIBLE PROXIMA L DIAGNOSTIC Recall History of colonic polyps Health Maintenance Due Date Last Done Comments Depression Screening 05/05/2018 05/05/2017 Mammogram 03/06/2021 03/06/2020, 2017 COVID-19 Vaccine (2022- season) 2023 06/04/2021, 08/10/2020 Hepatitis B (2 [...] as of this encounter Visit Diagnoses Diagnosis Anxiety Anxiety state, unspecified documented in this encounter Advance Directives Latest [...] the patient have Health Care Power of Auto Dealership Porter? No Care Teams Industrial Chemicals Supervisor Relationship Specialty Start Date End Date Gilson Bermudez DO [address] [place] [address] PCP - General Family Medicine 12/18/16 documented as of this encounter
--- OUTSIDE RECORDS SUMMARY | 2023-06-15 14:50 | External Medical Summary | Summary of Care ---
Author Name Unknown Organization [facility] Address [address] [place] [address] Phone [phone] Care Team Providers Care General Education Instructor Name Role Phone Tori Trujillo DO Primary Care Provider [phone] Reason for Visit * Reason Comments eRx-Medication Refill Encounter Details Date Type Department Care Team (Late st Contact Info) Description 05/10/2023 Refill Family Practice [facility] [address] [facility] [place] [address] Ashley Medina PA-C [address] [place] [address] Allergies Active Allergy Reactions Criticality Noted Date [...] as of this encounter (statuses as of 05/12/2023) Medications Medication Sig Dispensed Refills Start Date [...] BEFORE BEDTIME 45 Tablet 3 3 Active Acetaminophen-Codei ne 300-30 MG Oral TabletIndications:M igraine with aura and without status migrainosus, not intractable,Pelvic pain in female Take 1 Tablet by mouth every 8 hours as needed for Pain, Moderate. 40 Tablet 0 3 Active Nurtec 75 MG Oral Tablet Disintegrating (Rimegepant Sulfate) DISSOLVE 1 TABLET ON TONGUE ONCE DAILY NEEDED FOR MIGRAINE 8 Tablet 5 3 Active Nurtec 75 MG Oral Tablet Disintegrating (Rimegepant Sulfate) DISSOLVE 1 TABLET ON TONGUE ONCE DAILY NEEDED FOR MIGRAINE 8 Tablet 5 3 05/12/20 23 Discontinued documented as of this encounter (statuses as of 05/12/2023) Active Problems Problem Noted Date Diagnosed Date [...] as of this encounter (statuses as of 05/12/2023) Resolved Problems Problem Noted Date Diagnosed Date [...] as of this encounter (statuses as of 05/12/2023) Immunizations Name Administration Dates Next Due COVID-19 mRNA, LNP-s, No Pre serve, 2-Dose Series (Pfizer) 06/04/2021 Covid-19 Ad26, Single Dose ([place] Translate/J&J) 08/10/2020 Hepatitis B, 20+ yrs 02/18/2023 Pneumococcal Conjugate Vacci ne, 20-valent ([id number]) 12/11/2022 Pneumococcal Polysaccharide PPV23 (Pneumovax) 03/31/2019 SEASONAL INFLUENZA, PF, 6 M & Above, IM , (FLULAVAL or FLUZONE) 02/18/2023,02/25/2022,03/12/2017 Seasonal Influenza Virus Vac cine, Unspecified Formulation 02/25/2022,04/13/2018,02/17/2018,03/12,02/12/2016,03/04/2014,03/12/2013 ,02/18/2012,02/14/2011 Seasonal Influenza, QUAD, wi th Preserv, 6 [...] Telephone Encounter - Tori Trujillo DO - 05/12/2023 3:09 PM ESTSigned Prescriptions: Disp Refills Nurtec 75 MG Oral Tablet Disintegrating (R*8 Tabl*5 Sig: DISSOLVE 1 TABLET ON TONGUE ONCE DAILY NEEDED FOR MIGRAINE Authorizing Provider: TORI TRUJILLO * Telephone Encounter - Isamar Barnett LPN - 05/12/2023 3:04 PM ESTPending Prescriptions: Disp Refills Nurtec 75 MG Oral Tablet Disintegrating [P*8 Tabl*5 Sig: DISSOLVE 1 TABLET ON TONGUE ONCE DAILY NEEDED FOR MIGRAINE * Telephone Encounter - Isamar Barnett LPN - 05/12/2023 3:02 PM EST Pending Prescriptions: Disp Refills Nurtec 75 MG Oral Tablet Disintegrating (*8 Tabl*5 Sig: DISSOLVE 1 TABLET ON TONGUE ONCE DAILY NEEDED FOR MIGRAINE Last Visit: 02/11/2023 (in office), 12/14/2019 (telemedicine) Next Visit: Visit date not found Last date the medication was ordered: 03/06/23 Patient Active Problem List Diagnosis Code Herpes simplex B00.9 Sleep difficulties G47.9 Allergic rhinitis J30.9 Migraines G43.909 Breast hypertrophy N62 ABDON (generalized anxiety disorder) F41.1 Chronic pain syndrome G89.4 Tanning bed exposure, sequela W89.1XXS Hematuria, gross R31.0 Pelvic pain in female R10.2 Dyspareunia, female N94.10 Female stress incontinence N39.3 Labs: Lab Results Component Value Date/Time CREATININE - [facility] 0.7 08/06/2022 04:50 PM CREATININE - [facility] 1.1 (H) 06/01/2020 11:47 AM Lab Results Component Value Date/Time POTASSIUM - [facility] 3.7 08/06/2022 04:50 PM POTASSIUM - [facility] 4.6 06/01/2020 11:47 AM POTASSIUM POCT - [facility] 4.0 07/31/2012 01:15 PM Lab Results Component Value Date/Time TSH - [facility] 0.28 02/25/2022 02:28 PM TSH - [facility] 0.88 05/19/2020 01:20 PM Lab Results Component Value Date/Time LDL CHOLESTEROL (CALCULATED) - [facility] 111 01/21/2022 07:35 AM LDL CHOLESTEROL (CALCULATED) - [facility] 105 01/02/2017 09:10 AM LDL CHOLESTEROL (CALCULATED) - [facility] 100 06/13/2015 09:33 AM LDL CHOLESTEROL (DIRECT MEASURE) - [facility] NOT APPLICABLE 01/02/2017 09:10 AM LDL CHOLESTEROL (DIRECT MEASURE) - [facility] NOT APPLICABLE 06/13/2015 09:33 AM Lab Results Component Value Date/Time ALT - [facility] 8 (L) 08/06/2022 04:50 PM ALT - [facility] <5 (L) 06/01/2020 11:47 AM Hemoglobin AIC Results: Lab Results Component Value Date/Time HEMOGLOBIN A1C - [facility] 5.6 06/01/2020 11:47 AM HEMOGLOBIN A1C - [facility] 5.2 08/06/2017 10:19 AM HEMOGLOBIN A1C - [facility] 5.2 03/12/2013 03:04 PM * Telephone Encounter - Josh Aggarwal - 05/10/2023 1:14 PM ESTPending Prescriptions: Disp Refills Nurtec 75 MG Oral Tablet Disintegrating [P*8 Tabl*5 Sig: DISSOLVE 1 TABLET ON TONGUE ONCE DAILY NEEDED FOR MIGRAINE documented in this encounter Plan of Treatment Scheduled Procedures Name Priority Associated Diagnoses Date/Ti me COLONOSCOPY FLEXIBLE PROXIMA L DIAGNOSTIC Recall History of colonic polyps Health Maintenance Due Date Last Done Comments Depression Screening 05/05/2018 05/05/2017 Mammogram 03/06/2021 03/06/2020, 2017 COVID-19 Vaccine (3 - 2022-24 season) 2023 06/04/2021, 08/10/2020 Hepatitis B (2 [...] Not on filedocumented as of this encounter Advance Directives Latest Code Status [...] the patient have Health Care Power of Enrichment Teacher? No Care Teams General Education Instructor Relationship Specialty Start Date End Date Tori Trujillo DO [address] [place] [address] PCP - General Family Medicine 12/18/16 documented as of this encounter
[2023-06-15] MEDS ORDERED: LORazepam 2 MG/1 ML VIAL IM STA ×2 (15:02→15:27)
[2023-06-15] MEDS ORDERED: SODIUM CHLORIDE 0.9% 1,000 ML IV ONE (15:03)
[2023-06-15] MEDS ORDERED: LORazepam 1 MG/1 ML SYR ED Inj Use ONE ×3 (15:09→15:29)
--- NOTE | 2023-06-15 15:24 | Emergency Department Note ---
Impression & Plan Hyperventilation syndrome, Hyperventilation-induced syncope, Apnea, transient, Panic attacks, Hypokalemia, Hypophosphatemia, Post traumatic stress disorder (PTSD) ED Provider Note NAME: ZEINAB ALEXANDER AGE: 48 SEX: F ARRIVES VIA: Ambulance INFORMANT: Patient ED PROVIDER(S): Andrew Mejia MD CHIEF COMPLAINT: Syncope, hyperventilation/panic attack PLAN: Disposition: Admit MEDICAL DECISION MAKING: The patient is a 48-year-old woman with a past medical history of anxiety, panic attacks, migraine, PTSD related to complicated medical course following childbirth due to amniotic fluid embolism in 2012 who presents to the emergency department via EMS for evaluation of intractable panic attack with hyperventilation which began after having intimacy with her and it was reported that with her panic attack and hyperventilation she periodically stopped breathing and moving for 5 seconds or so before resuming hyperventilation. When EMS had arrived they witnessed 1 of these 5-second episodes. Slight ongoing symptoms the patient had initially refused transportation and so EMS contacted our facility for medical command. I spoke with EMS crew on medical command and they describe the patient's episodes but her request to. I explained to them that not guarantee there is no concerning medical condition but if the patient exhibited medical decision-making capacity she will be allowed to refuse so long as she is able to understand the risks and describe these in her own words. However it was made clear that our recommendation was to be evaluated. Subsequently they were able to convince the patient to be transported. On my evaluation the patient is significantly anxious, overtly hyperventilating with bilateral carpopedal spasms. She insisted on not receiving any medications initially. She reported that "benzodiazepines" do not work on her. She is prescribed Xanax regularly for her anxiety. She is also taking Lunesta for sleep. However, attempt to calm the patient to calm her breathing and trial of paper bag were unsuccessful as patient would not tolerate this. Ultimately it was decided that treatment of her hyperventilation was not necessary due to the risks of its persistence and so she was administered 1 mg of IM Ativan after it was noted that the patient had got out of bed and lowered himself to the ground and was kneeling on the ground in the position and could not be redirected. The patient's did arrive to the bedside and also attempted to calm the patient but was not possible. A 2 mg dose of IM Ativan was ordered and even though the patient was again requesting no medications the patient has been did agree with our recommendations to proceed with this due to the concerns and risks of her persistent hyperventilation. This was administered and again did not have any effect on her persistent hyperventilation. It was explained to the patient's that we would need to trial a different medication due to the fact that she may have a degree of tolerance since she is chronically on benzodiazepines. He was aware that if we were to proceed with these other medications that the prolonged sedative effect would be expected. Additional treatment discussed with emergency department pharmacist. Following approximately 10 minutes of the administered IM Ativan the patient was administered 5 mg of IM Zyprexa. Shortly thereafter I was contacted by nursing that the patient had another apneic episode which had persisted longer than her prior episodes and her O2 saturation had declined to 80% and was subsequently provided 100% oxygen with intermittent manual ventilations after which the patient shortly regained consciousness and again began to hyperventilate with continuation of carpopedal spasm. The patient was subsequently placed on capnography to monitor her respiratory status. She would continue to intermittently alternate from hyperventilation to apnea/bradypnea but would mostly have spontaneous breaths and only required 2 additional manual breaths after her initial resuscitation. The patient's O2 saturation subsequently also remained stable and the patient's mental status improved though still somnolent though hyperventilation had resolved. Given her ongoing hyperventilation syndrome which began upon EMS contact and had continued suspect episodes of apnea for due to reflex on respiratory center which would explain her 5-second episodes in the field and upon control of her panic attack resulted in a prolonged episode of apnea due to her hyperventilation and respiratory alkalosis. A VBG was obtained however this was drawn only after IV access was obtained following her episode of prolonged apnea and did not demonstrate alkalosis or decreased CO2 at that time. The physiology regarding the patient's episode was reviewed with the patient's at the bedside. Additional blood work was pending and anticipate there may be electrolyte abnormalities which may need to be addressed due to her presentation. EKG without overt acute ischemia. Chest x-ray negative for acute cardiopulmonary process per my preliminary independent interpretation. WBC, H/H and platelets within normal limits. VBG per above was unremarkable with pH of 7.41 and pCO2 35. Chemistry with normal bicarbonate of 23. Potassium is 2.6 in the setting of the patient's hyperventilation on arrival. IV repletion initiated. Magnesium 2.1, within normal limits. LFTs are unremarkable. CPK within normal limits. High-sensitivity troponin 3.3, within normal limits. Lipase not elevated. TSH within normal limits. The patient's phosphorus did return at an undetectable level which is also consistent with the patient's hyperventilation syndrome and so suspect large component of intracellular shifting though component of underlying deficiency is also possible. IV and oral repletion initiated. Given the patient's severe hyperventilation resulting in episodes of apnea and hypoxia in the setting of her electrolyte normalities the patient and her do agree with plan for admission for further management. The patient was significantly improved on reassessment alert and oriented though still complaining of muscle aches and pains particularly in both legs. There is no edema or discoloration of bilateral extremities. There is no pinpoint discrete area of tenderness. For completeness we did agree to proceed with a D-dimer recognizing it is highly sensitive and not specific to exclude additional etiology to the patient's symptoms though this is felt to be less likely at this time and there is reasonable explanation for her presentation given her history of PTSD and similar panic attacks in the past. Case was discussed with Tamar MORGAN with Dr. Mjeía, [facility] hospitalist, who will evaluate the patient for admission. Dimer subsequently within normal limits. Further management per admitting team. Triage Nursing notes reviewed and agree them. Prior/external medical records reviewed Vital Signs: reviewed Differential diagnosis: Reactive airway disease, pneumonia, pneumothorax, COPD, CHF, infections, cardiac ischemia, pulmonary embolism, musculoskeletal, gastrointestinal, as well as other pathologies. Mood disorder, infection, hypoglycemia, electrolyte abnormalities, cardiac sources, intracerebral event, toxicologic, trauma, neurologic, as well as other pathologies. ER treatment provided: See below. Diagnostics interpreted by me: ECG: Normal sinus rhythm, 85 bpm, no ectopy, T wave abnormality, no overt ST elevation or depression, QTc 468, QRS 78. Cardiac Monitoring: An order for continuous cardiac monitoring was placed and demonstrated Normal sinus rhythm, 85 bpm, no ectopy Laboratory studies: See below Imaging studies: See below Consultation(s): Case was discussed with Tamar MORGAN with Dr. Mejía [facility] hospitalist, who will evaluate the patient for admission. HPI: The patient is a 48-year-old woman with a past medical history of anxiety, panic attacks, migraine, PTSD related to complicated medical course following childbirth due to amniotic fluid embolism in 2012 presents who to the emergency department via EMS for evaluation of intractable panic attack with hyperventilation which began after having intimacy with her and it was reported that with her panic attack and hyperventilation she periodically stopped breathing and moving for 5 seconds or so before resuming hyperventilation. When EMS had arrived they witnessed 1 of these 5-second episodes. Slight ongoing symptoms the patient had initially refused transportation and so EMS contacted our facility for medical command. I spoke with EMS crew on medical command and they describe the patient's episodes but her request to. I explained to them that not guarantee there is no concerning medical condition but if the patient exhibited medical decision-making capacity she will be allowed to refuse so long as she is able to understand the risks and describe these in her own words. However it was made clear that our recommendation was to be evaluated. Subsequently they were able to convince the patient to be transported. ROS: See above HPI for pertinent positives & negatives. A total of 10 systems reviewed and were otherwise negative. VITALS:See Below PHYSICAL EXAMINATION: GENERAL: Awake, alert, severely anxious-appearing and difficult to redirect, in moderate distress HENT: Normocephalic, atraumatic. Oropharynx with dry mucous membranes and otherwise unremarkable. EYES: Normal conjunctiva. Sclera non-icteric. NECK: Supple. No nuchal rigidity. FROM. No JVD. RESPIRATORY: Tachypneic and otherwise lungs clear to auscultation bilaterally. CARDIAC: Tachycardic rate, normal rhythm. Extremities warm and well perfused. Pulses equal. ABDOMEN: Soft, non-distended. No tenderness to palpation. No rebound or guarding. No masses. RECTAL: Deferred. MUSCULOSKELETAL: Chest examination reveals no tenderness. The back is symmetrical on inspection without obvious abnormality. There is no CVA tenderness to palpation. No joint edema. LOWER EXTREMITIES: Calves are equal size bilaterally and non-tender. No edema. No discoloration. NEURO: Bilateral carpal pedal spasms. Normal reflexes. No clonus. SKIN: No rash or jaundice noted. ED COURSE: Critical Care: I have personally spent greater than 75 minutes of critical care time in the direct management of this patient. This includes bedside care, interpretation of diagnostic studies, and testing, discussion with consultants, patient, and family members, and other required patient management activities. This 75 minutes is in excess of all separately billable procedures. Andrew Mejia MD Past Med/Surg History Medical History B12 deficiency History of amniotic fluid embolism PTSD (post-traumatic stress disorder) Sleep disorder Anxiety Disseminated intravascular coagulation (10/01/12) Panic attacks Surgical History H/O tubal ligation Dilation and curettage (10/01/12) section (10/01/12) Social History Smoking Status: Current every day smoker Tobacco Type: Cigarettes Cigarettes Per Day: 1-2 cigarettes per day; Hx Alcohol Use: No Hx Substance Use: No Preferred Language: Thai Communication Ability: Effective Medical Front Desk Specialist Required: No Beliefs That Will Affect Care: None Current Living Situation: Spouse Other Information That Helps Us Care for You: No Feels Safe at Home: Yes Safety Concerns: Feels Safe At This Time Assistive Devices: None Allergies Allergies Allergy/AdvReac Type Severity Reaction Status Date / Time Penicillins Allergy Intermediate ITCHY RASH Verified 06/15/23 16:15 PER [facility]- "MOTHER WAS HIGHLY ALLERGIC" topiramate Allergy Intermediate CAUSED A Verified 06/15/23 16:15 SEIZURE PER [facility]. "freak out" "get numb" latex Allergy Mild RASH Verified 06/15/23 16:15 varenicline [From Chantix] AdvReac Severe SUICIDAL Verified 06/15/23 16:15 THOUGHTS oxycodone [From Percocet] AdvReac Intermediate itchy, Verified 06/15/23 16:15 "Makes me a bitch" Home Meds Home Medications Medication Instructions Recorded Confirmed zolpidem 10 mg tablet (Ambien) 10 mg PO HS PRN Sleep 12/14/19 06/15/23 alprazolam 1 mg tablet 1 mg PO TID Anxiety 07/23/22 06/15/23 prazosin 2 mg capsule 2 mg PO HS 07/23/22 06/15/23 rimegepant 75 mg disintegrating 75 mg PO DAILY PRN Migraine 07/23/22 06/15/23 tablet (Nurtec ODT) Headache baclofen 10 mg tablet 10 mg PO BID 06/15/23 06/15/23 cyanocobalamin (vitamin B-12) 1,000 mcg subcut MONTHLY 06/15/23 06/15/23 1,000 mcg/mL injection solution eszopiclone 3 mg tablet 3 mg PO HS PRN NEEDED PER EXT 06/15/23 06/15/23 MED HX. propranolol 60 mg capsule,24 60 mg PO DAILY 06/15/23 06/15/23 hr,extended release Previous Rx's Medication Instructions Recorded syringe with needle 1 mL 25 gauge #4 ea 04/04/23 x 1" fremanezumab-vfrm 225 mg/1.5 mL 225 mg (1.5 mL) subcut MONTHLY 04/08/23 subcutaneous auto-injector (Ajovy) #1.5 mL Results & Data (ED) Vital Signs Vital Signs - 24 hr 06/15/23 14:49 06/15/23 14:56 06/15/23 15:00 Pulse Rate 86 85 Pulse Rate from SpO2 Sensor 85 89 Pulse Rhythm Regular Pulse Strength Normal Respiratory Rate 25 H 32 H Respiratory Effort / Characteristics Non-Labored Respiratory Depth Normal Respiratory Pattern Regular Blood Pressure 131/72 Blood Pressure Mean 91 Pulse Oximetry 94 99 99 Oxygen Delivery Method Room Air Sepsis Recent Fever Within 48 Hours No Sepsis New/Unexplained Change in Mental Status No Sepsis Action Taken by Nursing No Action Required End-Tidal CO2 06/15/23 15:05 06/15/23 15:06 06/15/23 15:13 Pulse Rate Pulse Rate from SpO2 Sensor 113 H Pulse Rhythm Pulse Strength Respiratory Rate Respiratory Effort / Characteristics Respiratory Depth Respiratory Pattern Blood Pressure Blood Pressure Mean Pulse Oximetry Oxygen Delivery Method Room Air Room Air Sepsis Recent Fever Within 48 Hours Sepsis New/Unexplained Change in Mental Status Sepsis Action Taken by Nursing End-Tidal CO2 06/15/23 15:20 06/15/23 16:06 06/15/23 16:08 Pulse Rate 89 Pulse Rate from SpO2 Sensor 91 H 73 Pulse Rhythm Pulse Strength Respiratory Rate 33 H Respiratory Effort / Characteristics Respiratory Depth Respiratory Pattern Blood Pressure 134/83 Blood Pressure Mean 96 Pulse Oximetry 97 90 Oxygen Delivery Method Sepsis Recent Fever Within 48 Hours Sepsis New/Unexplained Change in Mental Status Sepsis Action Taken by Nursing End-Tidal CO2 06/15/23 16:08 06/15/23 16:08 06/15/23 16:10 Pulse Rate 79 65 Pulse Rate from SpO2 Sensor 79 65 Pulse Rhythm Pulse Strength Respiratory Rate 21 Respiratory Effort / Characteristics Respiratory Depth Respiratory Pattern Blood Pressure Blood Pressure Mean 129 Pulse Oximetry 98 100 Oxygen Delivery Method Sepsis Recent Fever Within 48 Hours Sepsis New/Unexplained Change in Mental Status Sepsis Action Taken by Nursing End-Tidal CO2 06/15/23 16:17 06/15/23 16:17 06/15/23 16:20 Pulse Rate 63 67 Pulse Rate from SpO2 Sensor 63 68 Pulse Rhythm Pulse Strength Respiratory Rate 9 L 19 Respiratory Effort / Characteristics Respiratory Depth Respiratory Pattern Blood Pressure 122/74 Blood Pressure Mean 92 Pulse Oximetry 95 95 Oxygen Delivery Method Sepsis Recent Fever Within 48 Hours Sepsis New/Unexplained Change in Mental Status Sepsis Action Taken by Nursing End-Tidal CO2 30 27 06/15/23 16:20 06/15/23 16:25 06/15/23 16:25 Pulse Rate 65 Pulse Rate from SpO2 Sensor 66 Pulse Rhythm Pulse Strength Respiratory Rate 17 Respiratory Effort / Characteristics Respiratory Depth Respiratory Pattern Blood Pressure 118/74 105/68 Blood Pressure Mean 84 76 Pulse Oximetry 95 Oxygen Delivery Method Sepsis Recent Fever Within 48 Hours Sepsis New/Unexplained Change in Mental Status Sepsis Action Taken by Nursing End-Tidal CO2 31 06/15/23 16:30 06/15/23 16:30 06/15/23 16:35 Pulse Rate 64 63 Pulse Rate from SpO2 Sensor 63 62 Pulse Rhythm Pulse Strength Respiratory Rate 9 L 15 Respiratory Effort / Characteristics Respiratory Depth Respiratory Pattern Blood Pressure 108/63 Blood Pressure Mean 82 Pulse Oximetry 97 98 Oxygen Delivery Method Sepsis Recent Fever Within 48 Hours Sepsis New/Unexplained Change in Mental Status Sepsis Action Taken by Nursing End-Tidal CO2 29 29 06/15/23 16:35 06/15/23 16:40 06/15/23 16:40 Pulse Rate 62 Pulse Rate from SpO2 Sensor 62 Pulse Rhythm Pulse Strength Respiratory Rate 8 L Respiratory Effort / Characteristics Respiratory Depth Respiratory Pattern Blood Pressure 103/67 105/70 Blood Pressure Mean 75 79 Pulse Oximetry 99 Oxygen Delivery Method Sepsis Recent Fever Within 48 Hours Sepsis New/Unexplained Change in Mental Status Sepsis Action Taken by Nursing End-Tidal CO2 35 06/15/23 16:45 06/15/23 16:45 06/15/23 16:50 Pulse Rate 62 60 Pulse Rate from SpO2 Sensor 61 60 Pulse Rhythm Pulse Strength Respiratory Rate 16 15 Respiratory Effort / Characteristics Respiratory Depth Respiratory Pattern Blood Pressure 106/64 Blood Pressure Mean 79 Pulse Oximetry 97 99 Oxygen Delivery Method Sepsis Recent Fever Within 48 Hours Sepsis New/Unexplained Change in Mental Status Sepsis Action Taken by Nursing End-Tidal CO2 29 27 06/15/23 16:50 06/15/23 16:55 06/15/23 16:55 Pulse Rate 66 Pulse Rate from SpO2 Sensor 64 Pulse Rhythm Pulse Strength Respiratory Rate 18 Respiratory Effort / Characteristics Respiratory Depth Respiratory Pattern Blood Pressure 93/54 L 96/50 L Blood Pressure Mean 63 65 Pulse Oximetry 99 Oxygen Delivery Method Sepsis Recent Fever Within 48 Hours Sepsis New/Unexplained Change in Mental Status Sepsis Action Taken by Nursing End-Tidal CO2 18 06/15/23 17:00 06/15/23 17:00 06/15/23 17:10 Pulse Rate 59 L 62 Pulse Rate from SpO2 Sensor 59 L 62 Pulse Rhythm Pulse Strength Respiratory Rate 4 L 14 Respiratory Effort / Characteristics Respiratory Depth Respiratory Pattern Blood Pressure 90/52 L Blood Pressure Mean 65 Pulse Oximetry 100 99 Oxygen Delivery Method Sepsis Recent Fever Within 48 Hours Sepsis New/Unexplained Change in Mental Status Sepsis Action Taken by Nursing End-Tidal CO2 8 06/15/23 17:20 06/15/23 17:30 06/15/23 17:40 Pulse Rate 61 65 61 Pulse Rate from SpO2 Sensor 62 63 60 Pulse Rhythm Pulse Strength Respiratory Rate 13 Respiratory Effort / Characteristics Respiratory Depth Respiratory Pattern Blood Pressure Blood Pressure Mean Pulse Oximetry 99 98 99 Oxygen Delivery Method Sepsis Recent Fever Within 48 Hours Sepsis New/Unexplained Change in Mental Status Sepsis Action Taken by Nursing End-Tidal CO2 18 17 34 06/15/23 17:50 06/15/23 18:00 06/15/23 18:10 Pulse Rate 68 68 63 Pulse Rate from SpO2 Sensor 63 74 62 Pulse Rhythm Pulse Strength Respiratory Rate Respiratory Effort / Characteristics Respiratory Depth Respiratory Pattern Blood Pressure Blood Pressure Mean Pulse Oximetry 98 92 97 Oxygen Delivery Method Sepsis Recent Fever Within 48 Hours Sepsis New/Unexplained Change in Mental Status Sepsis Action Taken by Nursing End-Tidal CO2 6 06/15/23 18:20 Pulse Rate 69 Pulse Rate from SpO2 Sensor 69 Pulse Rhythm Pulse Strength Respiratory Rate Respiratory Effort / Characteristics Respiratory Depth Respiratory Pattern Blood Pressure Blood Pressure Mean Pulse Oximetry 99 Oxygen Delivery Method Sepsis Recent Fever Within 48 Hours Sepsis New/Unexplained Change in Mental Status Sepsis Action Taken by Nursing End-Tidal CO2 Laboratory Data Attestation: I reviewed the patient's lab results. 06/15/23 16:16 06/15/23 16:16 Lab Results 06/15/23 06/15/23 Range/Units 16:16 16:23 WBC 9.07 (4.8-10.8) K/ul RBC 4.80 (4.20-5.40) M/uL Hgb 15.2 (12.0-16.0) g/dl Hct 42.7 (37.0-47.0) % MCV 89.0 (80.0-100.0) fL MCH 31.7 (25.0-34.0) pg MCHC 35.6 (32.0-36.0) g/dL RDW Std Deviation 38.6 (36.4-46.3) fL RDW Coeff of Azeb 11.9 (11.5-14.5) % Plt Count 316 (130-400) K/uL MPV 10.1 (9.4-12.4) fL Immature Gran % (Auto) 0.2 % Neut % (Auto) 65.6 % Lymph % (Auto) 27.2 % [place] % (Auto) 5.3 % Eos % (Auto) 1.4 % Baso % (Auto) 0.3 % Neut # (Auto) 5.94 (1.40-6.50) K/uL Lymph # (Auto) 2.47 (1.20-3.40) K/uL [place] # (Auto) 0.48 (0.11-0.59) K/uL Eos # (Auto) 0.13 (0.00-0.50) K/uL Baso # (Auto) 0.03 (0.00-0.20) K/uL Immature Gran # (Auto) 0.02 (0.01-0.20) K/uL D-Dimer 490 (0-500) ug/L FEU VBG pH 7.41 (7.36-7.41) VBG pCO2 35 L (38-50) mmHg VBG pO2 38 mmHg VBG HCO3 22 mmol/L VBG O2 Saturation 60.7 % VBG Base Excess -1.9 mEq/L Sodium 141 (136-145) mmol/L Potassium 2.6 L (3.5-5.1) mmol/L Chloride 108 H (98-107) mmol/L Carbon Dioxide 23 (21-32) mmol/L Anion Gap 10 (3-11) BUN 10 (6-23) mg/dl Creatinine 0.78 (0.6-1.2) mg/dl Est Cr Clr Drug Dosing 92.9 ml/min Est GFR ( Amer) 104.9 ml/min Est GFR (Non-Af Amer) 90.5 ml/min BUN/Creatinine Ratio 12.8 (10-20) Glucose 117 H (70-99(Fasting)) mg/dl Calcium 8.7 (8.6-10.3) mg/dl Phosphorus < 1.0 L* (2.5-4.9) mg/dl Magnesium 2.1 (1.7-2.4) mg/dl Total Bilirubin 0.7 (0.2-1.0) mg/dl AST 12 L (13-39) U/L ALT 4 L (7-52) U/L Alkaline Phosphatase 50 (34-104) U/L Total Creatine Kinase 57 (26-192) U/L Troponin I High Sens 3.3 (0-14) pg/ml Total Protein 6.5 (6.0-8.3) gm/dl Albumin 4.1 (3.4-5.0) gm/dl Globulin 2.4 L (2.5-4.0) gm/dl Albumin/Globulin Ratio 1.7 (0.9-2) Lipase 21 (11-82) U/L Vitamin B12 219 (180-914) pg/ml TSH 0.435 (0.300-4.500) uIu/ml Administered Medications Alprazolam (Alprazolam 0.5 Mg Tablet) 1 mg PO TID OCTAVIANO Stop: 07/15/23 20:59 Last Admin: 06/15/23 21:17 Dose: 1 mg Documented By: TYRESE Baclofen (Baclofen 10 Mg Tab) 10 mg PO BID OCTAVIANO Stop: 07/15/23 20:59 Last Admin: 06/15/23 21:17 Dose: 10 mg Documented By: TYRESE Enoxaparin Sodium (Enoxaparin Inj 40 Mg/0.4 Ml Syr) 40 mg SQ Q24H OCTAVIANO Stop: 07/15/23 19:59 Last Admin: 06/15/23 21:16 Dose: 40 mg Documented By: TYRESE Potassium Phosphate 30 mmol/ (Sodium Chloride) 510 mls @ 102 mls/hr IV ONE ONE Stop: 06/15/23 22:29 Last Admin: 06/15/23 18:04 Dose: 102 mls/hr Documented By: SANGEETA Prazosin HCl (Prazosin Hcl 1 Mg Cap) 2 mg PO HS OCTAVIANO Stop: 07/15/23 20:59 Last Admin: 06/15/23 21:17 Dose: 2 mg Documented By: TYRESE Zolpidem Tartrate (Zolpidem Tartrate 10 Mg Tab) 10 mg PO HS PRN PRN Reason: Sleep Stop: 07/15/23 21:31 Last Admin: 06/15/23 22:00 Dose: 10 mg Documented By: TYRESE Discontinued Medications Sodium Chloride (Nss) 1,000 mls @ 999 mls/hr IV .Q1H1M ONE Stop: 06/15/23 16:03 Last Admin: 06/15/23 16:00 Dose: Not Given Documented By: ZOLTAN Potassium Chloride (K Rajan / Wtr) 10 meq in 100 mls @ 100 mls/hr IV Q1H OCTAVIANO Stop: 06/15/23 18:59 Last Infusion: 06/15/23 19:33 Dose: Infused Documented By: Admin: 06/15/23 18:10 Dose: 100 mls/hr Documented By: Infusion: 06/15/23 18:09 Dose: Infused Documented By: Admin: 06/15/23 17:07 Dose: 100 mls/hr Documented By: ZOLTAN Acetaminophen (Ofirmev) 1,000 mg in 100 mls @ 400 mls/hr IV NOW STA Stop: 06/15/23 18:16 Last Infusion: 06/15/23 18:29 Dose: Infused Documented By: Admin: 06/15/23 18:11 Dose: 400 mls/hr Documented By: ZOLTAN Lorazepam (Lorazepam 2 Mg/1 Ml Vial) 1 mg IM NOW STA Stop: 06/15/23 15:03 Last Admin: 06/15/23 15:11 Dose: 1 mg Documented By: ZOLTAN Lorazepam (Lorazepam 1 Mg/1 Ml Syr Ed Inj Use) Confirm Administered Dose 1 mg .ROUTE .STK-MED ONE Stop: 06/15/23 15:10 Last Admin: 06/15/23 15:14 Dose: Not Given Documented By: ZOLTAN Lorazepam (Lorazepam 1 Mg/1 Ml Syr Ed Inj Use) Confirm Administered Dose 1 mg .ROUTE .STK-MED ONE Stop: 06/15/23 15:13 Last Admin: 06/15/23 15:13 Dose: Not Given Documented By: ZOLTAN Lorazepam (Lorazepam 2 Mg/1 Ml Vial) 2 mg IM NOW STA Stop: 06/15/23 15:28 Last Admin: 06/15/23 15:31 Dose: 2 mg Documented By: ZOLTAN Lorazepam (Lorazepam 1 Mg/1 Ml Syr Ed Inj Use) Confirm Administered Dose 2 mg .ROUTE .STK-MED ONE Stop: 06/15/23 15:30 Last Admin: 06/15/23 15:43 Dose: Not Given Documented By: ZOLTAN Olanzapine (Olanzapine 10 Mg/2.1 Ml Sdv) 5 mg IM NOW STA Stop: 06/15/23 15:48 Last Admin: 06/15/23 16:00 Dose: 5 mg Documented By: ZOLTAN Potassium Phosphate (Potassium Phos 3 Mmol/1 Ml Infusion) 30 mmol IV NOW STA Stop: 06/15/23 17:23 Last Admin: 06/15/23 18:08 Dose: Not Given Documented By: SANGEETA Potassium Phosphate (Pot Phosphate Monobasic W/ Sod Tab) 2 tab PO NOW STA Stop: 06/15/23 17:23 Last Admin: 06/15/23 18:04 Dose: 2 tab Documented By: SANGEETA Imaging Data Radiologist's Impression: Chest X-Ray 06/15/23 15:02 SINGLE VIEW CHEST CLINICAL HISTORY: Atypical chest pain FINDINGS: An AP, portable, upright chest radiograph is compared to study dated 08/01/2022. The cardiomediastinal silhouette is unremarkable. The lungs and pleural spaces are clear. No pneumothorax is seen. The bony thorax is grossly intact. IMPRESSION: No active disease in the chest. ACT 112: Negative or not required by law. Electronically signed by: Ernie Duffy M.D. 06/15/2023 5:40 PM Discharge Plan Visit Data Chief Complaint: Anxiety ED Provider: Andrew Mejia Discharge Problem: Hyperventilation syndrome, Hyperventilation-induced syncope, Apnea, transient, Panic attacks, Hypokalemia, Hypophosphatemia, Post traumatic stress disorder (PTSD) Patient Disposition: Admitted As Inpatient Discharge Instructions Interventions: ED Discharge Assessment Last Done: 06/15/23 19:37
[2023-06-15] MEDS ORDERED: OLANZapine 10 MG/2.1 ML SDV IM STA (15:47)
[2023-06-15 16:29] LABS: Base Excess VBG -1.9 mEq/L; HCO3 VBG 22 mmol/L; Oxygen Saturation VBG 60.7 %; PCO2 VBG 35 mmHg (38-50); PO2 VBG 38 mmHg; pH VBG 7.41 (7.36-7.41)
[2023-06-15 16:33] LABS: Basophils # (auto) 0.03 K/uL (0.00-0.20); Basophils % (auto) 0.3 %; Eosinophils # (auto) 0.13 K/uL (0.00-0.50); Eosinophils % (auto) 1.4 %; Hematocrit (blood only) 42.7 % (37.0-47.0); Hemoglobin 15.2 g/dl (12.0-16.0); Immature Granulocytes # (auto) 0.02 K/uL (0.01-0.20); Immature Granulocytes % (auto) 0.2 %; Lymphocytes # (auto) 2.47 K/uL (1.20-3.40); Lymphocytes % (auto) 27.2 %; Mean Corpuscular Hemoglobin 31.7 pg (25.0-34.0); Mean Corpuscular Hgb Conc 35.6 g/dL (32.0-36.0); Mean Platelet Volume 10.1 fL (9.4-12.4); Monocytes # (auto) 0.48 K/uL (0.11-0.59); Monocytes % (auto) 5.3 %; Neutrophils # (auto) 5.94 K/uL (1.40-6.50); Neutrophils % (auto) 65.6 %; Platelet Count 316 K/uL (130-400); RDW Coefficient of Variation 11.9 % (11.5-14.5); RDW Standard Deviation 38.6 fL (36.4-46.3); White Blood Count 9.07 K/ul (4.8-10.8)
[2023-06-15 16:52] LABS: Anion Gap 10 (3-11); BUN Creatinine Ratio 12.8 (10-20); Blood Urea Nitrogen 10 mg/dl (6-23); Calcium 8.7 mg/dl (8.6-10.3); Carbon Dioxide 23 mmol/L (21-32); Chloride 108 mmol/L (98-107); Creatinine Clr Calc Pharmacy 92.9 ml/min; Est GFR (African American) 104.9 ml/min; Est GFR (Non-African American) 90.5 ml/min; Glucose 117 mg/dl (70-99(Fasting)); Potassium 2.6 mmol/L (3.5-5.1); Sodium 141 mmol/L (136-145)
[2023-06-15 16:53] LABS: Alanine Aminotransferase 4 U/L (7-52); Albumin Globulin Ratio 1.7 (0.9-2); Albumin Level 4.1 gm/dl (3.4-5.0); Alkaline Phosphatase 50 U/L (34-104); Aspartate Aminotransferase 12 U/L (13-39); Bilirubin,Total 0.7 mg/dl (0.2-1.0); Creatine Kinase 57 U/L (26-192); Globulin 2.4 gm/dl (2.5-4.0); Lipase 21 U/L (11-82); Magnesium 2.1 mg/dl (1.7-2.4); Total Protein 6.5 gm/dl (6.0-8.3)
[2023-06-15 16:58] LABS: Troponin I High Sensitivity 3.3 pg/ml (0-14)
[2023-06-15 17:07] LABS: Thyroid Stimulating Hormone 0.435 uIu/ml (0.300-4.500)
[2023-06-15] MEDS: POTASSIUM CHLORIDE / WTR 10 MEQ/100 ML PLCT IV SCH ×2 (17:07→18:10)
[2023-06-15 17:20] LABS: Phosphorus < 1.0 mg/dl (2.5-4.9)
[2023-06-15] MEDS ORDERED: POT PHOSPHATE MONOBASIC W/ SOD TAB PO STA (17:22)
[2023-06-15] MEDS ORDERED: POTASSIUM PHOS 3 MMOL/1 ML INFUSION IV STA (17:22)
[2023-06-15] MEDS ORDERED: POTASSIUM PHOSPHATE 30 MMOL in SODIUM CHLORIDE 0.9% 500 ML IV ONE (17:30)
--- NOTE | 2023-06-15 17:42 | XRay Report ---
SINGLE VIEW CHEST CLINICAL HISTORY: Atypical chest pain FINDINGS: An AP, portable, upright chest radiograph is compared to study dated 08/01/2022. The cardiome diastinal silhouette is unremarkable. The lungs and pleural spaces are clear. No pneumothorax is seen . The bony thorax is grossly intact. IMPRESSION: No active disease in the chest. ACT 112: Negative or not required by law. Electronically signed by: Ernie Duffy M.D. 06/15/2023 5:40 PM
[2023-06-15] MEDS ORDERED: ACETAMINOPHEN 1,000 MG/100 ML VIAL IV STA (18:02)
[2023-06-15 18:12] LABS: D Dimer 490 ug/L FEU (0-500)
--- NOTE | 2023-06-15 19:19 | History & Physical Report ---
Date of Service June 15, 2023 Assessment & Plan (1) Hyperventilation: (2) Panic attacks: (3) Anxiety: Plan: Admit to telemetry Patient presenting from home with severe hyperventilation and panic attack. Patient with history of PTSD and anxiety. Hyperventilation was so severe that patient experienced apneic episodes. She is now hemodynamically stable, awake, alert and saturating well on room air. D Dimer negative. Leg pain likely due to carpopedal spasm in the setting of hypercapnia. Continuous pulse ox Initial VBG, pH 7.41, pCO2 35; will repeat VBG this evening Continue home medications for anxiety. Patient states she follows with a psychiatrist and [place]. (4) Hypophosphatemia: (5) Hypokalemia: Plan: K+ 2.6, phosphorus initially undetectable Received replacement in the ED Electrolyte derangements due to severe hyperventilation and hypocapnia Recheck electrolytes this evening DVT PROPHYLAXIS SQ Lovenox Patient seen in collaboration with Dr. Mejía. I spent a total of 75 minutes coordinating, documenting, and providing care for this patient excluding time spent in the performance of separately billed se rvices. This included personally reviewing all current laboratories and imaging studies, medication reconciliation, outpatient chart review, and discussion with specialists. History of Present Illness Chief Complaint: Panic attack Primary Care Provider: Gilson Bermudez, 48-year-old female with PMH PTSD, anxiety, migraines, sleep disorder, history of amniotic fluid embolism, and other problems listed below who presents to the ED for evaluation of severe panic attack and hyperventilation. History is obtained from the patient and review of outpatient PCP records. Patient reports that this afternoon she was putting on her coat when her hands and feet started to become numb and tingling. She then states she started to hyperventilate and collapsed to the floor. Patient does not remember following events. EMS was called. Patient was having episodes of apnea lasting up to 5 seconds. Upon arrival to the ED, patient was significantly anxious, hyperventilating, with bilateral carpopedal spasms. Patient received 2 mg IM Ativan and 5 mg IM Zyprexa. Patient did have another apneic episode in the ED and became hypoxic. She was provided with 100% oxygen and regained consciousness. Patient's hyperventilation and panic attack did subsequently resolved. She is now resting in bed comfortably, in no acute distress, and offers no complaints. Labs show K+ 2.6, phosphorus is undetectable. Patient was given IV Tylenol, IVF, potassium and phosphorus replacement. Allergies Allergy/AdvReac Type Severity Reaction Status Date / Time Penicillins Allergy Intermediate ITCHY RASH Verified 06/15/23 16:15 PER [facility]- "MOTHER WAS HIGHLY ALLERGIC" topiramate Allergy Intermediate CAUSED A Verified 06/15/23 16:15 SEIZURE PER [facility]. "freak out" "get numb" latex Allergy Mild RASH Verified 06/15/23 16:15 varenicline [From Chantix] AdvReac Severe SUICIDAL Verified 06/15/23 16:15 THOUGHTS oxycodone [From Percocet] AdvReac Intermediate itchy, Verified 06/15/23 16:15 "Makes me a bitch" Home Medications Medication Instructions Recorded Confirmed Type zolpidem 10 mg tablet (Ambien) 10 mg PO HS PRN Sleep 12/14/19 06/15/23 History alprazolam 1 mg tablet 1 mg PO TID Anxiety 07/23/22 06/15/23 History prazosin 2 mg capsule 2 mg PO HS 07/23/22 06/15/23 History rimegepant 75 mg disintegrating 75 mg PO DAILY PRN Migraine 07/23/22 06/15/23 History tablet (Nurtec ODT) Headache syringe with needle 1 mL 25 gauge #4 ea 04/04/23 05/08/23 Rx x 1" fremanezumab-vfrm 225 mg/1.5 mL 225 mg (1.5 mL) subcut MONTHLY 04/08/23 06/15/23 Rx subcutaneous auto-injector ([employer]) #1.5 mL baclofen 10 mg tablet 10 mg PO BID 06/15/23 06/15/23 History cyanocobalamin (vitamin B-12) 1,000 mcg subcut MONTHLY 06/15/23 06/15/23 History 1,000 mcg/mL injection solution eszopiclone 3 mg tablet 3 mg PO HS PRN NEEDED PER EXT 06/15/23 06/15/23 History MED HX. 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) Panic attacks Surgical History H/O tubal ligation Dilation and curettage (10/01/12) section (10/01/12) Social History Smoking Status: Current every day smoker Tobacco Type: Cigarettes Preferred Language: Tunisian Feels Safe at Home: Yes Physical Exam Constitutional: WD/WN, vitals as above no acute distress Eyes: PERRL, conjunctivae normal, anicteric sclerae ENMT: external ear and nose normal, oropharynx normal Respiratory: normal respiratory effort, lungs clear to auscultation Cardiovascular: Rate/Rhythm: regular rate and regular rhythm Vessels: normal peripheral pulses Extremities: no edema Gastrointestinal (Abdomen): normal bowel sounds, soft, nontender, no hepatosplenomegaly Musculoskeletal: no cyanosis or clubbing, extremities motor strength 5/5 Skin: no rashes, warm and dry Neurologic: PERRL, EOMI, accommodation nl, no face palsy, no dysarthria Psychiatric: A+Ox3, euthymic affect Results & Data Results & Data Vital Signs (Past 12 Hours) Vital Signs Pulse Resp BP Pulse Ox O2 Del Method 06/15/23 18:40 64 98 06/15/23 18:30 60 99 06/15/23 18:20 69 99 06/15/23 18:10 63 97 06/15/23 18:00 68 92 06/15/23 17:50 68 98 06/15/23 17:40 61 99 06/15/23 17:30 65 13 98 06/15/23 17:20 61 99 06/15/23 17:10 62 14 99 06/15/23 17:00 59 L 4 L 100 06/15/23 17:00 90/52 L 06/15/23 16:55 96/50 L 06/15/23 16:55 66 18 99 06/15/23 16:50 93/54 L 06/15/23 16:50 60 15 99 06/15/23 16:45 106/64 06/15/23 16:45 62 16 97 06/15/23 16:40 105/70 06/15/23 16:40 62 8 L 99 06/15/23 16:35 103/67 06/15/23 16:35 63 15 98 06/15/23 16:30 108/63 06/15/23 16:30 64 9 L 97 06/15/23 16:25 105/68 06/15/23 16:25 65 17 95 06/15/23 16:20 118/74 06/15/23 16:20 67 19 95 06/15/23 16:17 63 9 L 95 06/15/23 16:17 122/74 06/15/23 16:10 65 100 06/15/23 16:08 79 21 98 06/15/23 16:08 134/83 06/15/23 16:06 90 06/15/23 15:20 89 33 H 97 06/15/23 15:06 Room Air 06/15/23 15:05 Room Air 06/15/23 15:00 99 06/15/23 14:56 85 32 H 99 06/15/23 14:49 86 25 H 131/72 94 Room Air Laboratory Results Short CBC 06/15/23 Range/Units 16:16 WBC 9.07 (4.8-10.8) K/ul Hgb 15.2 (12.0-16.0) g/dl Hct 42.7 (37.0-47.0) % Plt Count 316 (130-400) K/uL BMP 06/15/23 16:16 Sodium 141 Potassium 2.6 L Chloride 108 H Carbon Dioxide 23 BUN 10 Creatinine 0.78 Glucose 117 H Calcium 8.7 Cardiac Enzymes 06/15/23 Range/Units 16:16 Total Creatine Kinase 57 (26-192) U/L Liver Function 06/15/23 Range/Units 16:16 Total Bilirubin 0.7 (0.2-1.0) mg/dl AST 12 L (13-39) U/L ALT 4 L (7-52) U/L Alkaline Phosphatase 50 (34-104) U/L Albumin 4.1 (3.4-5.0) gm/dl Diagnostic Findings Chest X-Ray 06/15/23 15:02 SINGLE VIEW CHEST CLINICAL HISTORY: Atypical chest pain FINDINGS: An AP, portable, upright chest radiograph is compared to study dated 08/01/2022. The cardiomediastinal silhouette is unremarkable. The lungs and pleural spaces are clear. No pneumothorax is seen. The bony thorax is grossly intact. IMPRESSION: No active disease in the chest. ACT 112: Negative or not required by law. Electronically signed by: Ernie Duffy M.D. 06/15/2023 5:40 PM Code Status & VTE Plan VTE Prophylaxis Plan VTE Prophylaxis will be ordered: Yes Supervising Physician Co-Signing Physician Notes Care coordinated with CATHY Rosales. Agree with above note. Patient seen and examined. Please refer to her notes for full details. Vital signs reviewed. Physical exam: General exam: Alert and oriented. Not in acute distress. CVS: S1 and S2 heard, regular rate and rhythm, no murmurs. RS: Clear to auscultation, no wheezing or crackles. ABD: Soft, bowel sounds present, nontender, no distention. [employer]: Nonfocal. EXT: No edema, no erythema. Labs: Reviewed. Assessment and plan: 48F presents with sever panic attack and hyperventilation causing apneic episodes requiring im Ativan and Zyprexa in ER and also at one point of time requiring 100% oxygen. Currently back to her usual self. Resting comfortably. Currently no chest pain or sob. No nausea or abdominal pain. No complaints. Hemodynamically stable. Having hypokalemia and hypophosphatemia. Will replace electrolytes. Follow repeat labs. Close monitor.Patient ok for psychiatry consult. Other diagnosis and plan of care as per CATHY Rosales. Derik tao MD.
[2023-06-15] MEDS ORDERED: ACETAMINOPHEN 325 MG TAB PO PRN (19:54)
[2023-06-15] MEDS ORDERED: ENOXAPARIN INJ 40 MG/0.4 ML SYR SQ SCH (20:00)
[2023-06-15] MEDS ORDERED: PRAZOSIN HCL 1 MG CAP PO SCH (21:00)
[2023-06-15] MEDS: BACLOFEN 10 MG TAB PO SCH (21:17)
[2023-06-15] MEDS: ALPRAZolam 0.5 MG TABLET PO SCH (21:17)
[2023-06-15] MEDS ORDERED: ZOLPIDEM TARTRATE 10 MG TAB PO PRN (21:32)
--- NOTE | 2023-06-15 21:47 | Electrocardiogram Report ---
Test Reason : Blood Pressure : / mmHG Vent. Rate : 085 BPM Atrial Rate : 085 BPM P-R Int : 132 ms QRS Dur : 078 ms QT Int : 394 ms P-R-T Axes : 086 073 041 degrees QTc Int : 468 ms Poor data quality, interpretation may be adversely affected Normal sinus rhythm Probable Normal ECG When compared with ECG of 01-AUG-2022 17:43, No significant change was found Confirmed by Austen Davis ([id number]) on 06/15/2023 9:47:23 PM Referred By: Confirmed By:Austen Davis
[2023-06-15 23:00] LABS: Base Excess VBG -1.1 mEq/L; HCO3 VBG 24 mmol/L; Oxygen Saturation VBG 75.1 %; PCO2 VBG 42 mmHg (38-50); PO2 VBG 44 mmHg; pH VBG 7.37 (7.36-7.41)
[2023-06-15 23:18] LABS: BUN Creatinine Ratio 10.1 (10-20); Calcium 7.3 mg/dl (8.6-10.3); Creatinine Clr Calc Pharmacy 94.4 ml/min; Est GFR (African American) 120.1 ml/min; Est GFR (Non-African American) 103.7 ml/min; Magnesium 1.8 mg/dl (1.7-2.4); Phosphorus 5.2 mg/dl (2.5-4.9)
[2023-06-16] MEDS ORDERED: MAGNESIUM SULFATE / D5W 1 GM/100 ML BAG IV ONE (00:40)
[2023-06-16] MEDS ORDERED: POTASSIUM CHLORIDE CRTAB 20 MEQ TABCR PO STA (00:41)
[2023-06-16] MEDS: POTASSIUM CHLORIDE / WTR 10 MEQ/100 ML PLCT IV SCH ×4 (00:56→03:55)
[2023-06-16 05:32] LABS: BUN Creatinine Ratio 9.1 (10-20); Calcium 7.2 mg/dl (8.6-10.3); Creatinine Clr Calc Pharmacy 118.4 ml/min; Est GFR (African American) 129.5 ml/min; Est GFR (Non-African American) 111.7 ml/min; Magnesium 2.3 mg/dl (1.7-2.4); Phosphorus 4.1 mg/dl (2.5-4.9); Potassium 3.4 mmol/L (3.5-5.1)
[2023-06-16 05:48] LABS: Hematocrit (blood only) 35.6 % (37.0-47.0); Hemoglobin 12.3 g/dl (12.0-16.0); Mean Corpuscular Hemoglobin 30.9 pg (25.0-34.0); Mean Corpuscular Hgb Conc 34.6 g/dL (32.0-36.0); Mean Corpuscular Volume 89.4 fL (80.0-100.0); Mean Platelet Volume 10.3 fL (9.4-12.4); Platelet Count 201 K/uL (130-400); RDW Coefficient of Variation 11.9 % (11.5-14.5); RDW Standard Deviation 38.7 fL (36.4-46.3); Red Blood Count 3.98 M/uL (4.20-5.40); White Blood Count 4.71 K/ul (4.8-10.8)
[2023-06-16] MEDS: ALPRAZolam 0.5 MG TABLET PO SCH (08:59)
[2023-06-16] MEDS: BACLOFEN 10 MG TAB PO SCH (09:00)
[2023-06-16] MEDS ORDERED: PROPRANOLOL HCL 60 MG LA CAP PO SCH (09:00)
--- NOTE | 2023-06-16 10:43 | Discharge Summary ---
Discharge Summary Date of Service June 16, 2023 Admission HPI Per Admitting Provider 48-year-old female with PMH PTSD, anxiety, migraines, sleep disorder, history of amniotic fluid embolism, and other problems listed below who presents to the ED for evaluation of severe panic attack and hyperventilation. History is obtained from the patient and review of outpatient PCP records. Patient reports that this afternoon she was putting on her coat when her hands and feet started to become numb and tingling. She then states she started to hyperventilate and collapsed to the floor. Patient does not remember following events. EMS was called. Patient was having episodes of apnea lasting up to 5 seconds. Upon arrival to the ED, patient was significantly anxious, hyperventilating, with bilateral carpopedal spasms. Patient received 2 mg IM Ativan and 5 mg IM Zyprexa. Patient did have another apneic episode in the ED and became hypoxic. She was provided with 100% oxygen and regained consciousness. Patient's hyperventilation and panic attack did subsequently resolved. She is now resting in bed comfortably, in no acute distress, and offers no complaints. Labs show K+ 2.6, phosphorus is undetectable. Patient was given IV Tylenol, IVF, po tassium and phosphorus replacement. Principal Dx & Hospital Course #1 = Principal Diagnosis (1) Hyperventilation: (2) Panic attacks: (3) Anxiety: Admit to telemetry Patient presenting from home with severe hyperventilation and panic attack. Patient with history of PTSD and anxiety. Hyperventilation was so severe that patient experienced apneic episodes. She is now hemodynamically stable, awake, alert and saturating well on room air. D Dimer negative. Leg pain likely due to carpopedal spasm in the setting of hyp ercapnia. Continuous pulse ox Initial VBG, pH 7.41, pCO2 35; will repeat VBG this evening Continue home medications for anxiety. Patient states she follows with a psychiatrist and [place]. (4) Hypophosphatemia: (5) Hypokalemia: K+ 2.6, phosphorus initially undetectable Received replacement in the ED Electrolyte derangements due to severe hyperventilation and hypocapnia Recheck electrolytes this evening DVT PROPHYLAXIS SQ Lovenox Patient seen in collaboration with Dr. Mejía. I spent a total of 75 minutes coordinating, documenting, and providing care for this patient excluding time spent in the performance of separately billed services. This included personally reviewing all current laboratories and imaging studies, medication reconciliation, outpatient chart review, and discussion with specialists. Updated Medication List Medication Instructions Recorded Confirmed Type zolpidem 10 mg tablet (Ambien) 10 mg PO HS PRN Sleep 12/14/19 06/15/23 History alprazolam 1 mg tablet 1 mg PO TID Anxiety 07/23/22 06/15/23 History prazosin 2 mg capsule 2 mg PO HS 07/23/22 06/15/23 History rimegepant 75 mg disintegrating 75 mg PO DAILY PRN Migraine 07/23/22 06/15/23 History tablet (Nurtec ODT) Headache syringe with needle 1 mL 25 gauge #4 ea 04/04/23 05/08/23 Rx x 1" fremanezumab-vfrm 225 mg/1.5 mL 225 mg (1.5 mL) subcut MONTHLY 04/08/23 06/15/23 Rx subcutaneous auto-injector ([employer]) #1.5 mL baclofen 10 mg tablet 10 mg PO BID 06/15/23 06/15/23 History cyanocobalamin (vitamin B-12) 1,000 mcg subcut MONTHLY 06/15/23 06/15/23 History 1,000 mcg/mL injection solution eszopiclone 3 mg tablet 3 mg PO HS PRN NEEDED PER EXT 06/15/23 06/15/23 History MED HX. propranolol 60 mg capsule,24 60 mg PO DAILY 06/15/23 06/15/23 History hr,extended release Hospital Stay Data Consultations 06/15/23 18:12 ED Decision to Admit Stat 06/16/23 08:00 Consult Psychiatry Routine Pending Results Patient Have Any Pending Studies at Discharge: No Discharge Instructions Given to Patient (Per Discharging Provider) Ms. Bacon, You were admitted as you had a severe panic attack causing changes in your breathing and electrolytes. Your symptoms and electrolytes improved and you are stable for discharge. Please keep close follow up with your primary care provider and psychiatrist after discharge to help with your panic attacks. Please do not hesitate to come back to the emergency room, should your symptoms worsen. It was a pleasure taking care of you while you were here.
--- NOTE | 2023-06-16 11:25 | Communication Note ---
Date of Service: June 16, 2023 psychiatry was consulted for severe panic attack with hypercapnia, hypokalemia in patient with a hx of PTSD following a near experience with an amniotic fluid embolism several years ago. She met with liaison last pm and documentation is on chart. She denied active depression and SI with a PHQ-9 of 4. She follows with a psychiatric [facility] in [place] fro rx of Xanax, zolpidem, etc. trazodone has also been prescribed by Dr. Bermudez. Surescripts noted past trials of bupropion, gabapentin, hydroxyzine, duloxetine,, esczopiclone, prazosin, and propranolol. Dr. Simeon discharged patient. Consult order was d/c'd so not to generate a note.
== END 2023-06-16 11:09 | disposition home or self-care (01) ==
LOC: ED 14:41 → 4W 18:23 → INTOOBSV 18:23 → SUATTDRO 18:23 → 4W 19:37

== ENCOUNTER 2023-06-16 11:25 | Observation (INO) ==
--- NOTE | 2023-06-16 11:45 | Emergency Department Note ---
History of Present Illness General Chief complaint: Illness Time Seen by Provider: 06/16/23 11:27 History of Present Illness 48-year-old female with a history of PTSD severe anxiety attacks and recent admission yesterday for severe anxiety attack causing hyperventilation and electrolyte abnormalities with a low potassium and low phosphorus. Patient was admitted overnight for IV electrolyte repletion, patient was discharged this morning and was doing fine went to the car with her and suddenly had a severe panic attack was hyperventilating and was unresponsive and then was apneic. at bedside states that she has had issues currently with her daughter and this has precipitated increased and anxiety attacks. Patient is unable to provide initial history due to alteration mental status and hyperventilation with obvious carpopedal spasm Home Medications Medication Instructions Recorded Confirmed Type zolpidem 10 mg tablet (Ambien) 10 mg PO HS PRN Sleep 12/14/19 06/15/23 History alprazolam 1 mg tablet 1 mg PO TID Anxiety 07/23/22 06/15/23 History prazosin 2 mg capsule 2 mg PO HS 07/23/22 06/15/23 History rimegepant 75 mg disintegrating 75 mg PO DAILY PRN Migraine 07/23/22 06/15/23 History tablet (Nurtec ODT) Headache syringe with needle 1 mL 25 gauge #4 ea 04/04/23 05/08/23 Rx x 1" fremanezumab-vfrm 225 mg/1.5 mL 225 mg (1.5 mL) subcut MONTHLY 04/08/23 06/15/23 Rx subcutaneous auto-injector (Ajovy) #1.5 mL baclofen 10 mg tablet 10 mg PO BID 06/15/23 06/15/23 History cyanocobalamin (vitamin B-12) 1,000 mcg subcut MONTHLY 06/15/23 06/15/23 History 1,000 mcg/mL injection solution eszopiclone 3 mg tablet 3 mg PO HS PRN NEEDED PER EXT 06/15/23 06/15/23 History MED HX. propranolol 60 mg capsule,24 60 mg PO DAILY 06/15/23 06/15/23 History hr,extended release Allergies Allergy/AdvReac Type Severity Reaction Status Date / Time Penicillins Allergy Intermediate ITCHY RASH Verified 06/15/23 16:15 PER [facility]- "MOTHER WAS HIGHLY ALLERGIC" topiramate Allergy Intermediate CAUSED A Verified 06/15/23 16:15 SEIZURE PER [facility]. "freak out" "get numb" latex Allergy Mild RASH Verified 06/15/23 16:15 varenicline [From Chantix] AdvReac Severe SUICIDAL Verified 06/15/23 16:15 THOUGHTS oxycodone [From Percocet] AdvReac Intermediate itchy, Verified 06/15/23 16:15 "Makes me a bitch" Past Med/Surg History Medical History B12 deficiency History of amniotic fluid embolism PTSD (post-traumatic stress disorder) Sleep disorder Anxiety Disseminated intravascular coagulation (10/01/12) Panic attacks Surgical History H/O tubal ligation Dilation and curettage (10/01/12) section (10/01/12) Social History Smoking Status: Unknown if ever smoked Tobacco Type: Cigarettes Cigarettes Per Day: 1-2 cigarettes per day; Hx Alcohol Use: No Hx Substance Use: No Preferred Language: Kyrgyz Communication Ability: Effective Masonry Installer Required: No Beliefs That Will Affect Care: None Current Living Situation: Spouse Feels Safe at Home: Yes Assistive Devices: None Physical Exam Vital Signs Vital Signs - 24 hr 06/16/23 11:25 06/16/23 12:03 06/16/23 12:36 Temperature 36.7 C Temperature Source Temporal Artery Scan Pulse Rate 66 66 Pulse Rate [Apical] 69 Pulse Rhythm Regular Pulse Rhythm [Apical] Regular Pulse Strength Normal Pulse Strength [Apical] Normal Respiratory Rate 60 H 58 H Respiratory Effort / Characteristics Respiratory Depth Respiratory Pattern Rapid/Shallow Tachypnea Tachypnea Blood Pressure 121/68 Blood Pressure [Right Arm] 123/60 Blood Pressure Mean 85 Blood Pressure Mean [Right Arm] 81 Blood Pressure Position Lying Pulse Oximetry 98 100 Oxygen Delivery Method Room Air Room Air Sepsis Recent Fever Within 48 Hours No Sepsis New/Unexplained Change in Mental Status No Sepsis Action Taken by Nursing No Action Required 06/16/23 12:41 Temperature Temperature Source Pulse Rate Pulse Rate [Apical] 61 Pulse Rhythm Pulse Rhythm [Apical] Regular Pulse Strength Pulse Strength [Apical] Normal Respiratory Rate 16 Respiratory Effort / Characteristics Spontaneous Respiratory Depth Normal Respiratory Pattern Regular Blood Pressure Blood Pressure [Right Arm] 106/70 Blood Pressure Mean Blood Pressure Mean [Right Arm] 82 Blood Pressure Position Pulse Oximetry 95 Oxygen Delivery Method Room Air Sepsis Recent Fever Within 48 Hours Sepsis New/Unexplained Change in Mental Status Sepsis Action Taken by Nursing GENERAL: Patient is hyperventilating, having carpopedal spasm, unresponsive EYES: The conjunctivae are clear. The pupils are round and reactive. EARS, NOSE, MOUTH AND THROAT: The nose is without any evidence of any deformity. Mucous membranes are moist. Tongue is midline. NECK: The neck is nontender and supple. RESPIRATORY: Hyperventilating with carpopedal spasm on my arrival, the patient has clear breath sounds bilaterally CARDIOVASCULAR: Regular rate and rhythm noted there no murmurs rubs or gallops normal S1 normal S2. GASTROINTESTINAL: The abdomen is soft. BACK: No midline tenderness or or step-off noted range of motion in flexion extension as well as rotation no signs of muscle spasm noted MUSCULOSKELETAL/EXTREMITIES: There is no evidence of gross deformity full range of motion is noted in the hips and shoulders. SKIN: There is no obvious evidence of any rash. There are no petechiae, pallor or cyanosis noted. NEUROLOGIC: Patient is awake but hyperventilating and not interactive not following commands initially Course Reevaluation(s) Reevaluation #1: Patient on repeat examination after IV Ativan and IV Haldol the patient is much calmer. Patient is hemodynamically stable. Patient is maintaining her own airway Time: 12:56 Consultations Consultation #1: Consult to case management for initiation of a 302 for acute psychosis, severe hyperventilation syndrome and severe anxiety attack Time: 12:23 Consultation #2: [facility] Time: 12:56 Administered Medications Discontinued Medications Haloperidol Lactate (Haloperidol Lactate 5 Mg/Ml 1 Ml Vial) 5 mg IV NOW STA Stop: 06/16/23 12:22 Last Admin: 06/16/23 12:24 Dose: 5 mg Documented By: EMILEE Lorazepam (Lorazepam 1 Mg/1 Ml Syr Ed Inj Use) 1 mg IV ONE STA Stop: 06/16/23 12:04 Last Admin: 06/16/23 12:08 Dose: 1 mg Documented By: NA Critical Care Time Critical Care Time: Yes Total Critical Care Time: 35 I have personally spent greater than 35 minutes of critical care time in the direct management of this patient. This includes bedside care, interpretation of diagnostic studies, and testing, discussion with consultants, patient, and family members, and other required patient management activities. These minutes are in excess of all separately billable procedures. Medical Decision Making Medical Records Attestation: I reviewed the patient's medical records. Home Medications Current Medication List: was personally reviewed by me Laboratory Data Attestation: I reviewed the patient's lab results. Labs interpreted by me the VBG shows a respiratory alkalosis 06/16/23 11:28 06/16/23 11:28 Lab Results 06/16/23 06/16/23 06/16/23 Range/Units 11:28 11:39 11:44 WBC 5.59 (4.8-10.8) K/ul RBC 4.29 (4.20-5.40) M/uL Hgb 13.4 (12.0-16.0) g/dl POC Hgb 12.9 (12.0-16.0) g/dl Hct 38.8 (37.0-47.0) % POC Hct 38 (37-47) % MCV 90.4 (80.0-100.0) fL MCH 31.2 (25.0-34.0) pg MCHC 34.5 (32.0-36.0) g/dL RDW Std Deviation 40.9 (36.4-46.3) fL RDW Coeff of Azeb 12.3 (11.5-14.5) % Plt Count 238 (130-400) K/uL MPV 10.8 (9.4-12.4) fL Immature Gran % (Auto) 0.4 % Neut % (Auto) 44.8 % Lymph % (Auto) 45.1 % [place] % (Auto) 7.0 % Eos % (Auto) 2.0 % Baso % (Auto) 0.7 % Neut # (Auto) 2.51 (1.40-6.50) K/uL Lymph # (Auto) 2.52 (1.20-3.40) K/uL [place] # (Auto) 0.39 (0.11-0.59) K/uL Eos # (Auto) 0.11 (0.00-0.50) K/uL Baso # (Auto) 0.04 (0.00-0.20) K/uL Immature Gran # (Auto) 0.02 (0.01-0.20) K/uL POC pH 7.28 L (7.35-7.45) POC pCO2 41 (35-46) mmHg POC pO2 39 L (80-95) mmHg POC HCO3 19 (19-24) enoch/L POC Total CO2 20 L (24-31) mmol/L POC Base Excess -8.0 (-9-1.8) enoch/L POC ABG O2 Sat 67.0 L (90-95) % VBG pH 7.48 H (7.36-7.41) VBG pCO2 32 L (38-50) mmHg VBG pO2 22 mmHg VBG HCO3 24 mmol/L VBG O2 Saturation < 60.0 % VBG Base Excess 0.9 mEq/L POC Sodium 141 (135-144) mmol/L Sodium 141 (136-145) mmol/L POC Potassium 3.3 (3.3-5.0) mmol/L Potassium 3.4 L (3.5-5.1) mmol/L Chloride 110 H (98-107) mmol/L Carbon Dioxide 22 (21-32) mmol/L Anion Gap 9 (3-11) BUN 4 L (6-23) mg/dl Creatinine 0.61 (0.6-1.2) mg/dl Est Cr Clr Drug Dosing Not Reportable Est GFR ( Amer) 125.1 ml/min Est GFR (Non-Af Amer) 108.0 ml/min BUN/Creatinine Ratio 6.6 L (10-20) Glucose 85 (70-99(Fasting)) mg/dl Calcium 7.9 L (8.6-10.3) mg/dl Magnesium 2.3 (1.7-2.4) mg/dl Total Bilirubin 0.8 (0.2-1.0) mg/dl AST 10 L (13-39) U/L ALT 4 L (7-52) U/L Alkaline Phosphatase 36 (34-104) U/L Total Protein 5.5 L (6.0-8.3) gm/dl Albumin 3.5 (3.4-5.0) gm/dl Globulin 2.0 L (2.5-4.0) gm/dl Albumin/Globulin Ratio 1.8 (0.9-2) TSH 1.435 (0.300-4.500) uIu/ml Salicylates < 3.0 L (3.0-30) mg/dl Acetaminophen < 3 L (10-30) ug/ml Ethyl Alcohol mg/dL < 10.0 (<10.0) mg/dl Imaging Data Attestation: I personally reviewed and interpreted this imaging study as follows: My Impression: Chest x-ray interpreted by me negative for infiltrate Radiologist's Impression: Chest X-Ray 06/16/23 11:28 XR chest 1V portable HISTORY: Shortness of breath. COMPARISON: Chest 06/15/2023. FINDINGS: The lungs are clear. Cardiac silhouette is normal in size. No pleural effusions. No pneumothorax. IMPRESSION: No acute process. ACT 112: Negative or not required by law. Electronically signed by: Leif Rivera M.D. 06/16/2023 11:45 AM ECG Data Attestation: I personally reviewed and interpreted this ECG as follows: Additional Comments: EKG interpreted by me, sinus bradycardia rate of 56, no obvious ST segment elevation or depression, normal intervals, normal axis Telemetry was interpreted by me as sinus bradycardia rate of 56 MDM Narrative Medical decision making differential diagnosis includes anxiety, panic attack, hyperventilation, hypercarbic respiratory failure, electrolyte abnormality, cardiac dysrhythmia Plan is to check labs, EKG, chest x-ray, observe Patient's at bedside provide me history of her having recent increase in panic attacks and admission yesterday for IV electrolyte repletion [facility] and the treatment overnight for the patient with IV repletion of her electrolytes Patient continues to have an alteration in mental status occasional hyperventilation, is maintaining her own airway, patient was given Ativan and Haldol. Patient will need a readmission for further treatment and potentially a psychiatric intervention I have discussed the evaluation with the shoe parts caser as well for disposition planning Impression & Plan Hyperventilation syndrome, Panic attacks, Anxiety, AMS (altered mental status) Discharge Plan Visit Data Chief Complaint: Illness ED Provider: Jimmie Calvo Discharge Problem: Hyperventilation syndrome, Panic attacks, Anxiety, AMS (altered mental status) Patient Disposition: Admitted As Inpatient Forms Stand Alone Forms: My [facility] Prescriptions Prescriptions: No Action (DME) syringe with needle 1 mL 25 gauge x 1" syringe See Rx Instructions .ROUTE .MEDSUPPLY Qty: 4 5RF Rx Instructions: As directed Ajovy Autoinjector 225 mg/1.5 mL auto-injector 225 mg subcut MONTHLY Qty: 1.5 5RF zolpidem [Ambien] 10 mg tablet 10 mg PO HS PRN (Reason: Sleep) alprazolam 1 mg tablet 1 mg PO TID prazosin 2 mg capsule 2 mg PO HS Nurtec ODT 75 mg tablet,disintegrating 75 mg PO DAILY PRN (Reason: Migraine Headache) baclofen 10 mg tablet 10 mg PO BID eszopiclone 3 mg tablet 3 mg PO HS PRN (Reason: NEEDED PER EXT MED HX.) cyanocobalamin (vitamin B-12) 1,000 mcg/mL solution 1,000 mcg subcut MONTHLY propranolol 60 mg capsule,extended release 24 hr 60 mg PO DAILY Referrals Referrals: Gilson Bermudez DO [Primary Care Provider] -
--- NOTE | 2023-06-16 11:46 | XRay Report ---
XR chest 1V portable HISTORY: Shortness of breath. COMPARISON: Chest 06/15/2023. FINDINGS: The lungs are clear. Cardiac silhouette is normal in size. No pleural effusions. No pneumot horax. IMPRESSION: No acute process. ACT 112: Negative or not required by law. Electronically signed by: Leif Rivera M.D. 06/16/2023 11:45 AM
[2023-06-16 11:55] LABS: Base Excess VBG 0.9 mEq/L; HCO3 VBG 24 mmol/L; Oxygen Saturation VBG < 60.0 %; PCO2 VBG 32 mmHg (38-50); PO2 VBG 22 mmHg; pH VBG 7.48 (7.36-7.41)
[2023-06-16 12:01] LABS: iSTAT Arterial Blood Gas HCO3 19 meg/L (19-24); iSTAT Arterial Blood Gas pCO2 41 mmHg (35-46); iSTAT Arterial Blood Gas pH 7.28 (7.35-7.45); iSTAT Arterial Blood Gas pO2 39 mmHg (80-95); iSTAT Carbon Dioxide 20 mmol/L (24-31); iSTAT Hematocrit 38 % (37-47); iSTAT Hemoglobin 12.9 g/dl (12.0-16.0); iSTAT Potassium 3.3 mmol/L (3.3-5.0); iSTAT Sodium 141 mmol/L (135-144)
[2023-06-16 12:06] LABS: Basophils # (auto) 0.04 K/uL (0.00-0.20); Basophils % (auto) 0.7 %; Eosinophils # (auto) 0.11 K/uL (0.00-0.50); Hematocrit (blood only) 38.8 % (37.0-47.0); Hemoglobin 13.4 g/dl (12.0-16.0); Immature Granulocytes # (auto) 0.02 K/uL (0.01-0.20); Immature Granulocytes % (auto) 0.4 %; Lymphocytes # (auto) 2.52 K/uL (1.20-3.40); Lymphocytes % (auto) 45.1 %; Mean Corpuscular Hemoglobin 31.2 pg (25.0-34.0); Mean Corpuscular Hgb Conc 34.5 g/dL (32.0-36.0); Mean Corpuscular Volume 90.4 fL (80.0-100.0); Mean Platelet Volume 10.8 fL (9.4-12.4); Monocytes # (auto) 0.39 K/uL (0.11-0.59); Neutrophils # (auto) 2.51 K/uL (1.40-6.50); Neutrophils % (auto) 44.8 %; Platelet Count 238 K/uL (130-400); RDW Coefficient of Variation 12.3 % (11.5-14.5); RDW Standard Deviation 40.9 fL (36.4-46.3); Red Blood Count 4.29 M/uL (4.20-5.40); White Blood Count 5.59 K/ul (4.8-10.8)
[2023-06-16] MEDS: LORazepam 1 MG/1 ML SYR ED Inj Use IV STA (12:08)
[2023-06-16] MEDS: HALOPERIDOL LACTATE 5 MG/ML 1 ML VIAL IV STA (12:24)
[2023-06-16 12:25] LABS: Acetaminophen < 3 ug/ml (10-30); Salicylate < 3.0 mg/dl (3.0-30)
[2023-06-16 12:34] LABS: Alanine Aminotransferase 4 U/L (7-52); Albumin Globulin Ratio 1.8 (0.9-2); Albumin Level 3.5 gm/dl (3.4-5.0); Alkaline Phosphatase 36 U/L (34-104); Anion Gap 9 (3-11); Aspartate Aminotransferase 10 U/L (13-39); BUN Creatinine Ratio 6.6 (10-20); Bilirubin,Total 0.8 mg/dl (0.2-1.0); Blood Urea Nitrogen 4 mg/dl (6-23); Calcium 7.9 mg/dl (8.6-10.3); Carbon Dioxide 22 mmol/L (21-32); Chloride 110 mmol/L (98-107); Est GFR (African American) 125.1 ml/min; Glucose 85 mg/dl (70-99(Fasting)); Magnesium 2.3 mg/dl (1.7-2.4); Potassium 3.4 mmol/L (3.5-5.1); Sodium 141 mmol/L (136-145); Thyroid Stimulating Hormone 1.435 uIu/ml (0.300-4.500); Total Protein 5.5 gm/dl (6.0-8.3)
[2023-06-16 13:29] LABS: Appearance Urine Clear (Clear); Bilirubin Urine Negative (Negative); Blood Urine Negative (Negative); Color Urine Yellow; Glucose Urine UA 3+ (Negative); Ketones Urine Negative (Negative); Leukocyte Esterase Urine Negative (Negative); Nitrite Urine Negative (Negative); Protein Urine Negative (Negative); Specific Gravity Urine 1.014 (1.000-1.030); Urobilinogen Urine Negative (Negative); pH Urine 7.5 (4.5-7.5)
[2023-06-16] MEDS ORDERED: ZOLPIDEM TARTRATE 10 MG TAB PO PRN (13:47)
[2023-06-16 13:50] LABS: Amphetamines+Metham, Urine Neg (Neg); Barbiturates, Urine Neg (Neg); Benzodiazepine, Urine Pos (Neg); Cocaine, Urine Neg (Neg); MDMA (Ecstacy), Urine Neg (Neg); Marijuana, Urine Pos (Neg); Methadone, Urine Neg (Neg); Opiate, Urine Neg (Neg); Phencyclidine, Urine Neg (Neg)
[2023-06-16] MEDS ORDERED: ESZOPICLONE 1 MG TAB PO PRN (13:54)
[2023-06-16] MEDS ORDERED: ALPRAZolam 0.5 MG TABLET PO SCH (14:00)
--- NOTE | 2023-06-16 14:33 | Electrocardiogram Report ---
Test Reason : Blood Pressure : / mmHG Vent. Rate : 056 BPM Atrial Rate : 056 BPM P-R Int : 166 ms QRS Dur : 080 ms QT Int : 426 ms P-R-T Axes : 049 069 063 degrees QTc Int : 411 ms Sinus bradycardia Low voltage QRS Borderline ECG When compared with ECG of 15-JUN-2023 14:49, Vent. rate has decreased BY 29 BPM Confirmed by Chris Chaudhry ([id number]) on 06/16/2023 2:32:35 PM Referred By: REFERRED SELF Confirmed By:Chris Chaudhry
[2023-06-16] MEDS ORDERED: BACLOFEN 10 MG TAB PO SCH (21:00)
[2023-06-16] MEDS ORDERED: PRAZOSIN HCL 1 MG CAP PO SCH (21:00)
[2023-06-16] MEDS ORDERED: ENOXAPARIN INJ 40 MG/0.4 ML SYR SQ SCH (21:00)
[2023-06-17] MEDS ORDERED: PROPRANOLOL HCL 60 MG LA CAP PO SCH (09:00)
--- NOTE | 2023-06-17 12:07 | Communication Note ---
Date of Service: June 17, 2023 received notice of incomplete consult. Our service was reconsulted after patient returned to the ED within minutes of discharge. Patient subsequently eloped from ED where she was being housed as med readmit so consult could not be completed. Active consult order delted as per Dr. Simeon.
[2023-06-19 06:43] LABS: 7-Aminoclonaz, Confirm NEGATIVE ng/mL (<25); Hydro-Alp Ur, GC/MS 196 ng/mL (<25); Hydroxyethylflurazepam, Conf NEGATIVE ng/mL (<50); Hydroxymidazolam Ur, GC/MS NEGATIVE ng/mL (<50); Hydroxytriazolam NEGATIVE ng/mL (<50); Lorazepam, Ur GC/MS 492 ng/mL (<50); Marijuana Quant, GCMS Urine 37 ng/mL (<5); Nordiazepam, Confirm NEGATIVE ng/mL (<50); Oxazepam Ur, GC/MS NEGATIVE ng/mL (<50); Temazepam, Confirm NEGATIVE ng/mL (<50)
--- NOTE | 2023-06-21 08:46 | History & Physical Report ---
Date of Service June 16, 2023 Assessment & Plan (1) Hyperventilation syndrome: (2) Hypokalemia: (3) Anxiety: (4) Panic attacks: Plan 48-year-old female with PMHx significant for PTSD, anxiety, migraines, sleep disorder, history of amniotic fluid embolism, and other problems listed below who presents to the ED for evaluation of severe panic attacks and hyperventilation once more that happened in the hospital parking lot after demanding to be discharged. Of note pt was discharged a few hours before presentation after threatening to leave AMA. Hyperventilation Panic attacks Anxiety Patient was discharged after threatening to leave AMA. Per they made it out to the car in the parking lot, when she had another panic attack becoming apneic. Re-presented to the ED. Per the , she had been texting with her daughter who is a major stressor. VBG showing alkalosis, pH of 7.48, pCO2 of 32 Received Ativan and Haldol in the ED. On admission, awake, alert and oriented though a bit sleepy. Discussion with pt and at bedside that she will need further evaluation by psychiatry and will likely require hospitalization and re-admission for further evaluation, since she had previously demanded to be discharged a few hours before. Pt and agreeable. Psychiatry consult placed- case discussed with Dr Carranza. A few hours later received notification from pt's nurse that pt had eloped from the hospital with her daughter, the purported stressor (elopement was confirmed with pt's ). Hypophosphatemia Hypokalemia Potassium of 3.4 that had been repleted once more that morning of discharge Phosphorus currently normal Electrolyte derangements due to severe hyperventilation and hypocapnia Diet: regular DVT prophylaxis: Lovenox SQ CODE STATUS: DNR/DNI Dispo: Med/surg with tele History of Present Illness Chief Complaint: Panic Attack Primary Care Provider: Gilson Bermudez DO 48-year-old female with PMHx significant for PTSD, anxiety, migraines, sleep disorder, history of amniotic fluid embolism, and other problems listed below who presents to the ED for evaluation of severe panic attacks and hyperventilation once more that happened in the hospital parking lot after demanding to be discharged earlier this morning. Pt was admitted for the same but had threatened to leave AMA and was discharged. Per they made it out to the car in the parking lot, when she had another panic attack becoming apneic. Re-presented to the ED. Per the , she had been texting with her daughter who is a major stressor. In the ED pt was altered with carpopedal spasms. Received IV Haldol 5mg and IV Ativan 1mg. Allergies Allergy/AdvReac Type Severity Reaction Status Date / Time Penicillins Allergy Intermediate ITCHY RASH Verified 06/16/23 13:12 PER [facility]- "MOTHER WAS HIGHLY ALLERGIC" topiramate Allergy Intermediate CAUSED A Verified 06/16/23 13:12 SEIZURE PER [facility]. "freak out" "get numb" latex Allergy Mild RASH Verified 06/16/23 13:12 varenicline [From Chantix] AdvReac Severe SUICIDAL Verified 06/16/23 13:12 THOUGHTS oxycodone [From Percocet] AdvReac Intermediate itchy, Verified 06/16/23 13:12 "Makes me a bitch" Home Medications Medication Instructions Recorded Confirmed Type zolpidem 10 mg tablet (Ambien) 10 mg PO HS PRN Sleep 12/14/19 06/16/23 History alprazolam 1 mg tablet 1 mg PO TID Anxiety 07/23/22 06/16/23 History prazosin 2 mg capsule 2 mg PO HS 07/23/22 06/16/23 History rimegepant 75 mg disintegrating 75 mg PO DAILY PRN Migraine 07/23/22 06/16/23 History tablet (Nurtec ODT) Headache syringe with needle 1 mL 25 gauge #4 ea 04/04/23 06/16/23 Rx x 1" fremanezumab-vfrm 225 mg/1.5 mL 225 mg (1.5 mL) subcut MONTHLY 04/08/23 06/16/23 Rx subcutaneous auto-injector (Ajovy) #1.5 mL baclofen 10 mg tablet 10 mg PO BID 06/15/23 06/16/23 History cyanocobalamin (vitamin B-12) 1,000 mcg subcut MONTHLY 06/15/23 06/16/23 History 1,000 mcg/mL injection solution eszopiclone 3 mg tablet 3 mg PO HS PRN NEEDED PER EXT 06/15/23 06/16/23 History MED HX. 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) Panic attacks Surgical History H/O tubal ligation Dilation and curettage (10/01/12) section (10/01/12) Social History Smoking Status: Unknown if ever smoked Tobacco Type: Cigarettes Cigarettes Per Day: 1-2 cigarettes per day; Hx Alcohol Use: No Hx Substance Use: No Preferred Language: Bolivian Communication Ability: Effective Internal Specialist Required: No Beliefs That Will Affect Care: None Current Living Situation: Spouse Feels Safe at Home: Yes Assistive Devices: None Review of Systems Review of Systems: All systems reviewed & are unremarkable except as noted in HPI & below Physical Exam Physical Exam: General: Alert, oriented. Drowsy Skin: No noted rashes or bruises Psych: Subdued mood and affect Neuro: No gross deficits HEENT: NC/AT Chest: Nontender to palpation. CV: RRR Resp: Breath sounds clear bilaterally, no increased effort of breathing. Abdomen: Soft Extremities: No edema in lower extremities bilaterally. Results & Data Results & Data Vital Signs (Past 12 Hours) Vital Signs Temp Pulse Pulse Resp BP BP Pulse Ox 06/16/23 12:41 61 16 106/70 95 06/16/23 12:36 66 06/16/23 12:03 69 58 H 123/60 100 06/16/23 11:25 36.7 C 66 60 H 121/68 98 O2 Del Method 06/16/23 12:41 Room Air 06/16/23 12:36 06/16/23 12:03 Room Air 06/16/23 11:25 Room Air
--- NOTE | 2023-06-21 09:27 | Discharge Summary ---
Discharge Summary Date of Service June 16, 2023 Notes For Next Care Provider Pt patrick, please ensure close follow up with psychiatry Medication Changes From Visit None- pt eloped Admission HPI Per Admitting Provider 48-year-old female with PMHx significant for PTSD, anxiety, migraines, sleep disorder, history of amniotic fluid embolism, and other problems listed below who presents to the ED for evaluation of severe panic attacks and hyperventilation once more that happened in the hospital parking lot after demanding to be discharged earlier this morning. Pt was admitted for the same but had threatened to leave AMA and was discharged. Per they made it out to the car in the parking lot, when she had another panic attack becoming apneic. Re-presented to the ED. Per the , she had been texting with her daughter who is a major stressor. In the ED pt was altered with carpopedal spasms. Received IV Haldol 5mg and IV Ativan 1mg. Admission Exam Per Admitting Provider General: Alert, oriented. Drowsy Skin: No noted rashes or bruises Psych: Subdued mood and affect Neuro: No gross deficits HEENT: NC/AT Chest: Nontender to palpation. CV: RRR Resp: Breath sounds clear bilaterally, no increased effort of breathing. Abdomen: Soft Extremities: No edema in lower extremities bilaterally. Principal Dx & Hospital Course #1 = Principal Diagnosis (1) Hyperventilation syndrome: (2) Hypokalemia: (3) Anxiety: (4) Panic attacks: Plan 48-year-old female with PMHx significant for PTSD, anxiety, migraines, sleep disorder, history of amniotic fluid embolism, and other problems listed below who presents to the ED for evaluation of severe panic attacks and hyperventilation once more that happened in the hospital parking lot after demanding to be discharged. Of note pt was discharged a few hours before this re-presentation after threatening to leave AMA. Hyperventilation Panic attacks Anxiety Patient was discharged earlier in the day after threatening to leave AMA. Per they made it out to the car in the parking lot, when she had another panic attack, becoming apneic once more. Re-presented to the ED. Per the , she had been texting with her daughter who is a major stressor. VBG showing alkalosis, pH of 7.48, pCO2 of 32 Received Ativan and Haldol in the ED. On admission, awake, alert and oriented though a bit sleepy. Discussion with pt and at bedside that she will need further evaluation by psychiatry and will likely require hospitalization and re-admission for further evaluation, since she had previously demanded to be discharged a few hours before. Pt and agreeable. Psychiatry consult placed- case discussed with Dr Carranza for further recommendations. A few hours later received notification from pt's nurse that pt had eloped from the hospital with her daughter, the purported stressor (elopement was confirmed with pt's ). Hypophosphatemia Hypokalemia Potassium of 3.4 that had been repleted once more that morning of discharge Phosphorus currently normal Electrolyte derangements due to severe hyperventilation and hypocapnia Diet: regular DVT prophylaxis: Lovenox SQ CODE STATUS: DNR/DNI Dispo: Med/surg with tele Discharge Exam Pt eloped but exam on re-admission was the following: General: Alert, oriented. Drowsy Skin: No noted rashes or bruises Psych: Subdued mood and affect Neuro: No gross deficits HEENT: NC/AT Chest: Nontender to palpation. CV: RRR Resp: Breath sounds clear bilaterally, no increased effort of breathing. Abdomen: Soft Extremities: No edema in lower extremities bilaterally. Updated Medication List Medication Instructions Recorded Confirmed Type zolpidem 10 mg tablet (Ambien) 10 mg PO HS PRN Sleep 12/14/19 06/16/23 History alprazolam 1 mg tablet 1 mg PO TID Anxiety 07/23/22 06/16/23 History prazosin 2 mg capsule 2 mg PO HS 07/23/22 06/16/23 History rimegepant 75 mg disintegrating 75 mg PO DAILY PRN Migraine 07/23/22 06/16/23 History tablet (Nurtec ODT) Headache syringe with needle 1 mL 25 gauge #4 ea 04/04/23 06/16/23 Rx x 1" fremanezumab-vfrm 225 mg/1.5 mL 225 mg (1.5 mL) subcut MONTHLY 04/08/23 06/16/23 Rx subcutaneous auto-injector (Ajovy) #1.5 mL baclofen 10 mg tablet 10 mg PO BID 06/15/23 06/16/23 History cyanocobalamin (vitamin B-12) 1,000 mcg subcut MONTHLY 06/15/23 06/16/23 History 1,000 mcg/mL injection solution eszopiclone 3 mg tablet 3 mg PO HS PRN NEEDED PER EXT 06/15/23 06/16/23 History MED HX. propranolol 60 mg capsule,24 60 mg PO DAILY 06/15/23 06/16/23 History hr,extended release Hospital Stay Data Consultations 06/16/23 12:55 ED Decision to Admit Stat 06/16/23 13:47 Consult Psychiatry Routine Diagnostic Imagining Performed Chest X-Ray 06/16/23 11:28 XR chest 1V portable HISTORY: Shortness of breath. COMPARISON: Chest 06/15/2023. FINDINGS: The lungs are clear. Cardiac silhouette is normal in size. No pleural effusions. No pneumothorax. IMPRESSION: No acute process. ACT 112: Negative or not required by law. Electronically signed by: Leif Rivera M.D. 06/16/2023 11:45 AM Discharge Instructions Given to Patient (Per Discharging Provider) pt eloped Total Time Total Time Spent Total Time Spent (In Minutes): > 30 minutes
== END 2023-06-16 15:43 | disposition left against medical advice (07) | DRG 882 ==
LOC: ED 11:25 → EDINP 13:33 → INTOOBSV 13:33 → EDINP 13:43